=== PATIENT | female | born 1945 | race Caucasian/White ===

== ENCOUNTER 2017-05-24 17:05 | Inpatient (IN) | payer MEDICARE, MEDICAID ==
[2017-05-24] MEDS ORDERED: NS 0.9% 1000 ML* 1,000 ML IV SCH ×2 (19:00→23:30)
[2017-05-24 20:42] LABS: Hematocrit 40 % (35-47); Hemoglobin 13.5 g/dl (12.0-16.0); Mean Corpuscular HGB Conc 34 g/dl (31-36); Mean Corpuscular Hemoglobin 28 pg (27-31); Mean Corpuscular Volume 83 fL (80-97); Mean Platelet Volume 8 um3 (7.4-10.4); Red Blood Count 4.86 10^6/ul (4.0-5.4); Red Cell Distribution Width 15 % (10.5-15); White Blood Count 7.3 10^3/ul (3.5-10.8)
[2017-05-24 20:59] LABS: ALT 12 U/L (7-52); AST 33 U/L (13-39); Albumin 3.7 g/dL (3.2-5.2); Alkaline Phosphatase 93 U/L (34-104); Anion Gap 10 mmol/L (2-11); BUN/Creatinine Ratio 33.3 (8-20); Blood Urea Nitrogen 23 mg/dL (6-24); C Reactive Protein 138.49 mg/L (< 5.00); CO2 Carbon Dioxide 29 mmol/L (22-32); Calcium 9.9 mg/dL (8.6-10.3); Chloride 97 mmol/L (101-111); Creatine Kinase 708 U/L (10-223); EGFR African American 107.9 (>60); EGFR Non-African American 83.9 (>60); Globulin 3.7 g/dL (2-4); Glucose 100 mg/dL (70-100); Lipase 26 U/L (11.0-82.0); Magnesium 1.3 mg/dL (1.9-2.7); Potassium 2.8 mmol/L (3.5-5.0); Sodium 136 mmol/L (133-145); Total Protein 7.4 g/dL (6.4-8.9)
[2017-05-24 21:28] LABS: Alcohol < 10 mg/dL (<10)
[2017-05-24 21:29] LABS: TSH (Thyroid Stimulating Horm) 0.99 mcIU/mL (0.34-5.60)
--- NOTE | 2017-05-24 21:39 | RAD ---
HISTORY: Altered mental status COMPARISONS: None TECHNIQUE: Multiple contiguous axial CT scans were obtained of the head without intravenous contrast. FINDINGS: HEMORRHAGE/INFARCT: There is no hemorrhage or acute infarct. MASSES/SHIFT: There is no mass or shift. EXTRA-AXIAL SPACES: There are no extra-axial fluid collections. SULCI AND VENTRICLES: There is diffuse and proportional enlargement of the sulci and ventricles. CEREBRUM: There is hypoattenuation of the periventricular and subcortical white matter. BRAINSTEM: There are no focal parenchymal abnormalities. CEREBELLUM: There are no focal parenchymal abnormalities. VESSELS: The vessels are grossly normal. PARANASAL SINUSES: There is postsurgical change to the paranasal sinuses. ORBITS: The orbits are unremarkable. BONES AND SOFT TISSUE: No bone or soft tissue abnormalities are noted. OTHER: None IMPRESSION: NO ACUTE INTRACRANIAL PATHOLOGY. DIFFUSE INVOLUTIONAL CHANGE WITH CHRONIC SMALL VESSEL ISCHEMIC CHANGES.
--- NOTE | 2017-05-24 21:50 | RAD ---
HISTORY: Altered mental status COMPARISONS: None VIEWS: 1: frontal portable view of the chest at 9:32 PM FINDINGS: LINES AND TUBES: None. CARDIOMEDIASTINAL SILHOUETTE: The cardiomediastinal silhouette is normal for portable technique. PLEURA: The costophrenic angles are sharp. No pleural abnormalities are noted. LUNG PARENCHYMA: There is hyperinflation. There are mild coarse reticular markings in the lung bases bilaterally. ABDOMEN: The upper abdomen is clear. There is no subphrenic gas. BONES AND SOFT TISSUES: There is diffuse osteopenia. Degenerative changes are noted IMPRESSION: HYPERINFLATION WITH MILD FIBROTIC CHANGES
[2017-05-24] MEDS ORDERED: Magnesium Sulfate 2 GM IV* 2 GM/50 ML BAG IV ONE (22:00)
[2017-05-24] MEDS: NS 0.9% 1000 ML* 1,000 ML IV SCH (22:45)
[2017-05-24] MEDS: Potassium Chlor TAB* 20 MEQ TAB.ER PO SCH ×2 (22:45→23:33)
--- NOTE | 2017-05-24 23:00 | HP ---
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 When asked what brought her to the ED she states, "I fell last week, I think." Per ED/EMS reports she fell during the night of 05/23 when she tripped over her walker while going to the restroom. She was unable to get up and lay on the floor until ~1600 05/24 when her aide arrived, found her, and called EMS. She denies head injury, LOC, chest pain, SOB, N/V, F/C, palpitations , pain, or other issues. 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) asthma osteoporosis Allergies Sulfa Antibiotics Allergy (Verified 05/24/17 18:16) Hives/Diff.Breathing/Itching PSurgHx denies SocHx: denies tobacco, alcohol, & recreational drugs; lives alone; full code status FamHx: unobtainable ROS: as above, otherwise reviewed and all were negative vitals: Vital Signs Temp 37.1 C 05/24/17 17:45 Pulse 88 05/24/17 19:30 Resp 17 05/24/17 19:30 BP 94/51 05/24/17 19:30 Pulse Ox 94 05/24/17 19:30 Intake & Output 05/23/17 05/24/17 05/24/17 23:59 11:59 23:59 Weight 69.853 kg Constitutional: NAD, normally developed, well-nourished elderly white female HEENM: atraumatic; sclera/conjunctiva: non-icteric/clear; hearing: clinically mildly decreased; oropharynx: clear, mucosa tacky Neck: soft tissue: non-tender; thyroid: normal Pulmonary: clear to auscultation bilaterally, good aeration, no accessory muscle use CV: RR/RR, normal S1S2, no carotid bruit, no jugular venous distention, 2+ B DP/ PT, no edema Abdominal: soft, non-distended, non-tender, no rebound/guarding/rigidity, normoactive bowel sounds, no hepatosplenomegaly or masses, no costovertebral angle tenderness Musculoskeletal: general: grossly intact, no palpable tenderness; gait: uses walker at baseline Integumental: B elbow abrasions Psychiatric orientation: AA&O to PP, not TS affect: calm mood: pleasant, cooperative eye contact: fair content: simplistic memory: impaired responses: mildly slowed, often tangential insight: poor Testing: reviewed on paper due to [facility] unscheduled downtime ECG, personally reviewed: NSR rate 92, artifactual baseline, no obvious ischemia CXR: IMPRESSION: Hyperinflation with mild fibrotic changes CT brain WO: IMPRESSION: No acute intracranial pathology. Diffuse involutional change with chronic small vessel ischemic changes. 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
[2017-05-24] MEDS ORDERED: Melatonin (NF) 3 MG TAB PO PRN (23:15)
[2017-05-24] MEDS ORDERED: Albuterol 2.5 MG/3 ML NEB.SOL* (0.083%) INH PRN (23:15)
[2017-05-24] MEDS ORDERED: Ondansetron INJ* 2 MG/ML VIAL IV PRN (23:15)
[2017-05-25] MEDS: NS 0.9% 1000 ML* 1,000 ML IV SCH ×2 (00:17→00:54)
[2017-05-25] MEDS: Potassium Chlor TAB* 20 MEQ TAB.ER PO SCH (00:18)
--- NOTE | 2017-05-25 03:54 | ED ---
Kvng Martinez Rebecca, scribed for Elias Hodgeuel on 05/24/17 at 2331 . Adult Trauma - HPI Summary HPI Summary: Pt is a 72 y/o F BIBA who presents to ED s/p mechanical fall. Last night, the pt fell at home between her bedroom and bathroom. She was on the floor all night , unable to get up on her own. At 1600 today, her home health aide arrived, helped her up and called EMS. Prior to health aides arrival, pt has last been seen at 1600 yesterday. Pt currently c/o generalized weakness. Denies any head trauma and any pain. Pt lives alone. Most of Hx obtained from nurse/medical records due to mild MR. - History of Current Complaint Chief Complaint: EDGeneral Stated Complaint: FALL Time Seen by Provider: 05/24/17 20:18 Hx Obtained From: Patient Mechanism of Injury: Fall Onset/Duration: Resolved Onset of Pain: Prior to Arrival Current Severity: None Pain Intensity: 0 Pain Scale Used: 0-10 Numeric Aggravating Factor(s): Nothing Alleviating Factor(s): Nothing Associated Signs & Symptoms: Positive: Other: - Generalized weakness - Allergy/Home Medications Allergies/Adverse Reactions: Allergies Allergy/AdvReac Type Severity Reaction Status Date / Time Sulfa Antibiotics Allergy Hives/Diff. Verified 05/24/17 18:16 Breathing/I tching PMH/Surg Hx/FS Hx/Imm Hx Cardiovascular History: Reports: Hx Hypercholesterolemia, Hx Hypertension Respiratory History: Reports: Hx Asthma GI History: Reports: Hx Gastroesophageal Reflux Disease Musculoskeletal History: Reports: Hx Osteoporosis Neurological History: Reports: Other Neuro Impairments/Disorders - Mild MR - Cancer History Hx Chemotherapy: No Hx Radiation Therapy: No Infectious Disease History: No Infectious Disease History: Denies: Traveled Outside the [place] in Last 30 Days - Family History Known Family History: Positive: Unknown - Unobtainable secondary to MR - Social History Alcohol Use: None Substance Use Type: Reports: None Smoking Status (MU): Never Smoked Tobacco Review of Systems Positive: Other - Generalized weakness Positive: Other - NEGATIVE: pain Neurological: Other - NEGATIVE: Head trauma All Other Systems Reviewed And Are Negative: Yes Physical Exam - Summary Physical Exam Summary: Appearance: Well appearing, no pain distress Skin: warm, dry, reflects adequate perfusion, abrasion over the R elbow Head/face: normal Eyes: EOMI, ANIBAL ENT: normal Neck: supple, nontender Respiratory: CTA, breath sounds present Cardiovascular: RRR, pulses symmetrical Abdomen: nontender, soft Bowel: present Musculoskeletal: normal, strength/ROM intact Neuro: alert and confused GCS: 15 Triage Information Reviewed: Yes Vital Signs On Initial Exam: Initial Vitals Temp Pulse Resp BP Pulse Ox 98.7 F 90 16 99/55 95 05/24/17 17:45 05/24/17 17:45 05/24/17 17:45 05/24/17 17:45 05/24/17 17:45 Vital Signs Reviewed: Yes Diagnostics - Vital Signs Vital Signs Temp Pulse Resp BP Pulse Ox 05/24/17 19:30 88 17 94/51 94 05/24/17 19:10 95 05/24/17 19:06 90 19 91/49 94 05/24/17 19:00 90 18 86/53 94 05/24/17 18:30 91 19 103/57 94 05/24/17 18:00 94 19 102/53 94 05/24/17 17:48 97 20 93 05/24/17 17:46 99/55 05/24/17 17:45 98.7 F 90 16 99/55 95 - Laboratory Lab Statement: Any lab studies that have been ordered have been reviewed, and results considered in the medical decision making process. - Radiology CXR Xray Interpretation: Positive (See Comments) - HYPERINFLATION WITH MILD FIBROTIC CHANGES. ED physician reviewed radiology report and agrees. Radiology Interpretation Completed By: Radiologist - CT Brain CT CT Interpretation: No Acute Changes - NO ACUTE INTRACRANIAL PATHOLOGY. DIFFUSE INVOLUTIONAL CHANGE WITH CHRONIC SMALL VESSEL ISCHEMIC CHANGES. ED physician reviewed radiology report and agrees. CT Interpretation Completed By: Radiologist Adult Trauma Course/Dx - Course Assessment/Plan: Pt is a 72 y/o F BIBA who presents to ED s/p mechanical fall. Last night, the pt fell at home between her bedroom and bathroom. She was on the floor all night, unable to get up on her own. At 1600 today, her home health aide arrived, helped her up and called EMS. Prior to health aides arrival, pt has last been seen at 1600 yesterday. Pt currently c/o generalized weakness. Denies any head trauma and any pain. Pt lives alone. Most of Hx obtained from nurse/medical records due to mild MR. CT Abd/Pel reveals no acute findings. CXR reveals hyperinflation with mild fibrotic changes. In the ED course, pt received magnesium sulfate. Discussed care of pt with Dr. Triana who accepts pt for admission. Pt will be admitted. She understands and agrees. Allergies noted. - Diagnoses Provider Diagnoses: Altered mental status, Dehydration, Rhabdomyolysis, Hypokalemia, Abrasion of right elbow - Physician Notifications Discussed Care Of Patient With: Shane Triana Time Discussed With Above Provider: 22:05 Instructed by Provider To: Other - Accepts pt for admission. Discharge - Discharge Plan Condition: Stable Disposition: ADMITTED TO [facility] documentation as recorded by the Kvng flores Rebecca accurately reflects the service I personally performed and the decisions made by , Ronal Hodge.
[2017-05-25] MEDS: Omeprazole CAP* 20 MG PO SCH (05:38)
[2017-05-25 06:00] LABS: Hematocrit 36 % (35-47); Hemoglobin 11.9 g/dl (12.0-16.0); Mean Corpuscular HGB Conc 33 g/dl (31-36); Mean Corpuscular Hemoglobin 28 pg (27-31); Mean Corpuscular Volume 84 fL (80-97); Mean Platelet Volume 10 um3 (7.4-10.4); Red Blood Count 4.28 10^6/ul (4.0-5.4); Red Cell Distribution Width 15 % (10.5-15); White Blood Count 5.7 10^3/ul (3.5-10.8)
[2017-05-25 06:18] LABS: BUN/Creatinine Ratio 33.3 (8-20); Calcium 8.9 mg/dL (8.6-10.3); EGFR African American 119.8 (>60); EGFR Non-African American 93.2 (>60); Potassium 3.6 mmol/L (3.5-5.0)
[2017-05-25] MEDS: Docusate CAP* 100 MG PO SCH ×2 (07:38→19:59)
[2017-05-25 10:17] LABS: Hematocrit 37 % (35-47); Hemoglobin 12.2 g/dl (12.0-16.0); Mean Corpuscular HGB Conc 33 g/dl (31-36); Mean Corpuscular Hemoglobin 28 pg (27-31); Mean Corpuscular Volume 84 fL (80-97); Mean Platelet Volume 9 um3 (7.4-10.4); Red Blood Count 4.42 10^6/ul (4.0-5.4); Red Cell Distribution Width 15 % (10.5-15); White Blood Count 5.2 10^3/ul (3.5-10.8)
[2017-05-25 10:32] LABS: Urine Bacteria 2+ (Absent); Urine Bilirubin Negative (Negative); Urine Glucose Negative (Negative); Urine Nitrite Positive (Negative)
[2017-05-25 10:35] LABS: BUN/Creatinine Ratio 31.3 (8-20); C Reactive Protein 125.84 mg/L (< 5.00); Calcium 9.1 mg/dL (8.6-10.3); EGFR African American 111.6 (>60); EGFR Non-African American 86.8 (>60); Potassium 3.5 mmol/L (3.5-5.0)
[2017-05-25 10:54] LABS: TSH (Thyroid Stimulating Horm) 0.93 mcIU/mL (0.34-5.60)
[2017-05-25 10:54] LABS: Benzodiazepine Urine Screen None Detected (None Detect)
--- NOTE | 2017-05-25 16:07 | PN ---
Subjective Date of Service: 05/25/17 Interval History: Pt c/o pain in her left breast after the fall. Remembers slipping and falling down, no LOC. usually walks with a walker. Her sister Karyna is the surrogate and pays pt's bills. Objective Active Medications: Acetaminophen (Tylenol Tab*) 650 mg PO Q6H PRN PRN Reason: FEVER/PAIN Albuterol (Ventolin 2.5 Mg/3 Ml Neb.Esperanza*) 2.5 mg INH Q2H PRN PRN Reason: SOB/WHEEZING Docusate Sodium (Colace Cap*) 200 mg PO BID [facility] Last Admin: 05/25/17 07:38 Dose: 200 mg Sodium Chloride (Ns 0.9% 1000 Ml*) 1,000 mls @ 75 mls/hr IV PER RATE [facility] Last Admin: 05/25/17 00:54 Dose: 75 mls/hr Melatonin (Melatonin (Nf)) 3 mg PO BEDTIME PRN; Protocol PRN Reason: Sleep Omeprazole (Prilosec Cap*) 20 mg PO DAILY@0600 [facility] Last Admin: 05/25/17 05:38 Dose: 20 mg Ondansetron HCl (Zofran Inj*) 4 mg IV Q6H PRN PRN Reason: NAUSEA Appearance: 72 yo f in nAD, aAOx2, does not remember the date-suspect pt's baseline Eyes: No Scleral Icterus, PERRLA Ears/Nose/Mouth/Throat: NL Teeth, Lips, Gums, Clear Oropharnyx, Mucous Membranes Moist Neck: NL Appearance and Movements; NL JVP, Trachea Midline Respiratory: Symmetrical Chest Expansion and Respiratory Effort, - - coarse rhonhi in left lung Cardiovascular: NL Sounds; No Murmurs; No JVD, RRR Abdominal: NL Sounds; No Tenderness; No Distention Lymphatic: No Cervical Adenopathy Extremities: No Edema, No Clubbing, Cyanosis Skin: No Nodules or Sclerosis, - - mild vesicular eczema of b/l palms noted Neurological: - - genrerlaized weakness, no faocal deficit Assess/Plan/Problems-Billing Assessment: 72 yo f with h/o mild intellectual disability, HTN, dyslipidemia, vesicular eczema on b/l palms presents s/p fall. Apparently spent approx 20 hrs on the floor unable to get up. - Patient Problems (1) Rhabdomyolysis Comment: very mild CPK 708 at admission will, stop IVF PT/OT pending Unable to go home due to generalized weakness suspect will need STR. Will place on inpatient status (2) UTI (urinary tract infection) Comment: abd UA, suspect UTI, will start Ceftriaxone (3) Vesicular palmoplantar eczema of hand Comment: chronic, cont steroid cream (4) Intellectual disability Comment: cont olanzapine and abilify Pt denies h/o depression or other psychiatric illnesses No psych dx noted in Dr. Mixon's note from 03/03 (5) HTN (hypertension) Comment: BP WNL without HCTZ, cont holding off meds (6) Hypokalemia Comment: cont daily replacement, today much improved at 3.6 (7) Hypomagnesemia Comment: treated in ED, will check in aM cont telem for now (8) DVT prophylaxis Comment: heparin sc Status and Disposition: OBV changed to inpatient
--- NOTE | 2017-05-25 17:15 | RAD ---
HISTORY: Rule out pneumonia, fall, shortness of breath COMPARISONS: May 24, 2017 VIEWS: 1: frontal portable view of the chest at 4:26 PM. The patient is obliqued to the left. FINDINGS: LINES AND TUBES: None. CARDIOMEDIASTINAL SILHOUETTE: The cardiomediastinal silhouette is normal for portable technique. PLEURA: There is blunting of left costophrenic angle. LUNG PARENCHYMA: There is hyperinflation. There are mild coarse reticular markings, stable. ABDOMEN: The upper abdomen is clear. There is no subphrenic gas. BONES AND SOFT TISSUES: No bone or soft tissue abnormalities are noted. IMPRESSION: SMALL LEFT PLEURAL EFFUSION.
[2017-05-25] MEDS: cefTRIAXone VIAL(*) 1,000 MG in NS 0.9% 50 ML* 50 ML IVPB SCH (18:12)
[2017-05-25] MEDS ORDERED: OLANzapine TAB* 5 MG PO ONE (18:26)
[2017-05-25] MEDS ORDERED: ARIPiprazole TAB* 5 MG PO ONE (18:26)
[2017-05-25] MEDS ORDERED: ARIPiprazole TAB* 20 MG PO ONE (18:30)
[2017-05-25] MEDS: Acetaminophen TAB* 325 MG PO PRN (19:50)
[2017-05-25] MEDS: Famotidine TAB* 20 MG PO SCH (19:59)
[2017-05-25] MEDS: TRIAMCINOLONE 0.025% TOPICAL SCH (20:00)
[2017-05-25] MEDS: Heparin VIAL(*) 5000 UNITS/ML VIAL (FIVE THOUSAND) SUBCUT SCH (21:47)
[2017-05-26] MEDS: Acetaminophen TAB* 325 MG PO PRN ×2 (02:22→16:42)
[2017-05-26] MEDS: NS 0.9% 1000 ML* 1,000 ML IV SCH ×2 (02:23→15:21)
[2017-05-26] MEDS: Omeprazole CAP* 20 MG PO SCH (05:37)
[2017-05-26] MEDS: Heparin VIAL(*) 5000 UNITS/ML VIAL (FIVE THOUSAND) SUBCUT SCH ×3 (05:37→21:35)
[2017-05-26 05:57] LABS: Hematocrit 35 % (35-47); Hemoglobin 11.5 g/dl (12.0-16.0); Mean Corpuscular HGB Conc 33 g/dl (31-36); Mean Corpuscular Hemoglobin 28 pg (27-31); Mean Corpuscular Volume 84 fL (80-97); Mean Platelet Volume 8 um3 (7.4-10.4); Red Blood Count 4.16 10^6/ul (4.0-5.4); Red Cell Distribution Width 15 % (10.5-15); White Blood Count 4.1 10^3/ul (3.5-10.8)
[2017-05-26 06:16] LABS: EGFR African American 104.4 (>60); EGFR Non-African American 81.2 (>60); Magnesium 1.7 mg/dL (1.9-2.7); Potassium 3.5 mmol/L (3.5-5.0)
[2017-05-26] MEDS: Polyethylene Glycol 3350* 17 GM PACKET PO SCH (08:08)
[2017-05-26] MEDS: Potassium Chlor TAB* 10 MEQ TAB.ER PO SCH (08:09)
[2017-05-26] MEDS: Docusate CAP* 100 MG PO SCH ×2 (08:09→21:35)
[2017-05-26] MEDS: OLANzapine TAB* 5 MG PO SCH (08:10)
[2017-05-26] MEDS: ARIPiprazole TAB* 20 MG PO SCH (08:11)
[2017-05-26] MEDS: TRIAMCINOLONE 0.025% TOPICAL SCH ×2 (08:11→21:35)
[2017-05-26] MEDS: Albuterol HFA INHALER* 8 gm MDI INH PRN (08:48)
[2017-05-26] MEDS: FLUTICASONE 220 MCG INH SCH (08:49)
[2017-05-26] MEDS: MDI INH SCH (08:49)
[2017-05-26] MEDS ORDERED: FLOVENT 220 MCG INH SCH (09:00)
[2017-05-26 09:39] LABS: Urine Bacteria 1+ (Absent); Urine Bilirubin Negative (Negative); Urine Glucose Negative (Negative); Urine Nitrite Negative (Negative)
[2017-05-26] MEDS: cefTRIAXone VIAL(*) 1,000 MG in NS 0.9% 50 ML* 50 ML IVPB SCH (16:36)
--- NOTE | 2017-05-26 16:37 | PN ---
Subjective Date of Service: 05/26/17 Interval History: Pt is still " achy all over".. Wants to go home, but her sister requested STR for pt. Demetrice reluctantly agrees and wont do anything against her sister's wishes Objective Active Medications: Acetaminophen (Tylenol Tab*) 650 mg PO Q6H PRN PRN Reason: FEVER/PAIN Last Admin: 05/26/17 02:22 Dose: 650 mg Albuterol (Ventolin 2.5 Mg/3 Ml Neb.Esperanza*) 2.5 mg INH Q2H PRN PRN Reason: SOB/WHEEZING Albuterol (Ventolin Hfa Inhaler*) 2 puff INH Q4H PRN PRN Reason: SOB/WHEEZING Last Admin: 05/26/17 08:48 Dose: 2 puff Aripiprazole (Abilify Tab*) 20 mg PO DAILY [facility] Last Admin: 05/26/17 08:11 Dose: 20 mg Docusate Sodium (Colace Cap*) 200 mg PO BID [facility] Last Admin: 05/26/17 08:09 Dose: 200 mg Famotidine (Pepcid Tab*) 40 mg PO BEDTIME [facility] Last Admin: 05/25/17 19:59 Dose: 40 mg Fluticasone Propionate (Flovent Hfa 220 Mcg(Nf)) 2 puff INH DAILY [facility] Last Admin: 05/26/17 08:49 Dose: 2 puff Heparin Sodium (Porcine) (Heparin Vial(*)) 5,000 units SUBCUT Q8HR [facility] Last Admin: 05/26/17 14:05 Dose: 5,000 units Sodium Chloride (Ns 0.9% 1000 Ml*) 1,000 mls @ 75 mls/hr IV PER RATE [facility] Last Admin: 05/26/17 15:21 Dose: 75 mls/hr Ceftriaxone Sodium 1,000 mg/ (Sodium Chloride) 50 mls @ 200 mls/hr IVPB Q24H [facility] Last Admin: 05/25/17 18:12 Dose: 200 mls/hr Magnesium Oxide (Magox 400 Tab*) 800 mg PO DAILY [facility] Melatonin (Melatonin (Nf)) 3 mg PO BEDTIME PRN; Protocol PRN Reason: Sleep Olanzapine (Zyprexa Tab*) 5 mg PO DAILY [facility] Last Admin: 05/26/17 08:10 Dose: 5 mg Omeprazole (Prilosec Cap*) 20 mg PO DAILY@0600 [facility] Last Admin: 05/26/17 05:37 Dose: 20 mg Ondansetron HCl (Zofran Inj*) 4 mg IV Q6H PRN PRN Reason: NAUSEA Polyethylene Glycol/Electrolytes (Miralax*) 17 gm PO DAILY [facility] Last Admin: 05/26/17 08:08 Dose: 17 gm Potassium Chloride (Klor Con Er Tab*) 10 meq PO DAILY [facility] Last Admin: 05/26/17 08:09 Dose: 10 meq Triamcinolone Acetonide (Kenalog Cream 0.025%*) 1 applic TOPICAL BID [facility] Last Admin: 05/26/17 08:11 Dose: 1 apply Vital Signs 05/25/17 05/25/17 05/25/17 19:20 19:55 23:48 Temperature 98.0 F 98.3 F Pulse Rate 83 58 Respiratory 24 16 16 Rate Blood Pressure 106/64 111/49 (mmHg) O2 Sat by Pulse 95 96 Oximetry 05/26/17 05/26/17 05/26/17 04:22 07:17 07:30 Temperature 98.1 F 97.9 F Pulse Rate 72 63 Respiratory 16 20 20 Rate Blood Pressure 91/57 100/52 (mmHg) O2 Sat by Pulse 97 95 Oximetry 05/26/17 05/26/17 05/26/17 08:18 11:43 15:40 Temperature 97.5 F 98.2 F Pulse Rate 65 72 90 Respiratory 20 20 20 Rate Blood Pressure 95/34 100/55 (mmHg) O2 Sat by Pulse 95 98 96 Oximetry Oxygen Devices in Use Now: None Appearance: 72 yo f in nAD, aAOx2, poor historian, no problems with following commands Eyes: No Scleral Icterus, PERRLA Ears/Nose/Mouth/Throat: NL Teeth, Lips, Gums, Mucous Membranes Moist Neck: NL Appearance and Movements; NL JVP, Trachea Midline Respiratory: Symmetrical Chest Expansion and Respiratory Effort, - - crackles at b/l bases Cardiovascular: NL Sounds; No Murmurs; No JVD, RRR Abdominal: NL Sounds; No Tenderness; No Distention Lymphatic: No Cervical Adenopathy Extremities: No Clubbing, Cyanosis, - - trace pedal edema b/l Skin: No Nodules or Sclerosis, - - mild vesicular eczema on b/l palms Neurological: NL Muscle Strength and Tone Assess/Plan/Problems-Billing Assessment: 72 yo f with h/o mild intellectual disability, HTN, dyslipidemia, vesicular eczema on b/l palms presents s/p fall. Apparently spent approx 20 hrs on the floor unable to get up. - Patient Problems (1) Rhabdomyolysis Comment: very mild CPK 708 at admission, today down to 600 PT/OT ongoing, plan to go to STR (2) UTI (urinary tract infection) Comment: abn UA, cx with E. 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 Mixon's note from 03/03, but as per sister Karyna pt had h/o schizophrenia (5) HTN (hypertension) Comment: BP WNL without HCTZ, cont holding off meds (6) Hypokalemia Comment: cont daily replacement, today much improved at 3.6 (7) Hypomagnesemia Comment: cont daily MgOx today at 1.7 (8) DVT prophylaxis Comment: heparin sc Status and Disposition: inpatient
[2017-05-26] MEDS: Magnesium Oxide TAB* 400 MG PO SCH (16:42)
[2017-05-26] MEDS: Famotidine TAB* 20 MG PO SCH (21:35)
[2017-05-27] MEDS: Heparin VIAL(*) 5000 UNITS/ML VIAL (FIVE THOUSAND) SUBCUT SCH ×3 (05:54→21:14)
[2017-05-27] MEDS: Omeprazole CAP* 20 MG PO SCH (05:54)
[2017-05-27] MEDS: FLUTICASONE 220 MCG INH SCH (07:59)
[2017-05-27] MEDS: ARIPiprazole TAB* 20 MG PO SCH (07:59)
[2017-05-27] MEDS: Polyethylene Glycol 3350* 17 GM PACKET PO SCH (07:59)
[2017-05-27] MEDS: MDI INH SCH (07:59)
[2017-05-27] MEDS: Magnesium Oxide TAB* 400 MG PO SCH (07:59)
[2017-05-27] MEDS: Docusate CAP* 100 MG PO SCH ×2 (07:59→21:11)
[2017-05-27] MEDS: Potassium Chlor TAB* 10 MEQ TAB.ER PO SCH (07:59)
[2017-05-27] MEDS: OLANzapine TAB* 5 MG PO SCH (07:59)
[2017-05-27] MEDS: TRIAMCINOLONE 0.025% TOPICAL SCH ×2 (07:59→21:20)
--- NOTE | 2017-05-27 09:56 | PN ---
Subjective Date of Service: 05/27/17 Interval History: Pt feels well. conversation sometimes tangential: stated that she doesn't like stairs, although we we're talking about how she felt last night. Refuses to go to [facility], but is will ing to talk with Karyna about it further. Objective Active Medications: Acetaminophen (Tylenol Tab*) 650 mg PO Q6H PRN PRN Reason: FEVER/PAIN Last Admin: 05/26/17 16:42 Dose: 650 mg Albuterol (Ventolin 2.5 Mg/3 Ml Neb.Esperanza*) 2.5 mg INH Q2H PRN PRN Reason: SOB/WHEEZING Albuterol (Ventolin Hfa Inhaler*) 2 puff INH Q4H PRN PRN Reason: SOB/WHEEZING Last Admin: 05/26/17 08:48 Dose: 2 puff Aripiprazole (Abilify Tab*) 20 mg PO DAILY [facility] Last Admin: 05/27/17 07:59 Dose: 20 mg Docusate Sodium (Colace Cap*) 200 mg PO BID [facility] Last Admin: 05/27/17 07:59 Dose: 200 mg Famotidine (Pepcid Tab*) 40 mg PO BEDTIME [facility] Last Admin: 05/26/17 21:35 Dose: 40 mg Fluticasone Propionate (Flovent Hfa 220 Mcg(Nf)) 2 puff INH DAILY [facility] Last Admin: 05/26/17 08:49 Dose: 2 puff Heparin Sodium (Porcine) (Heparin Vial(*)) 5,000 units SUBCUT Q8HR [facility] Last Admin: 05/27/17 05:54 Dose: 5,000 units Ceftriaxone Sodium 1,000 mg/ (Sodium Chloride) 50 mls @ 200 mls/hr IVPB Q24H [facility] Last Admin: 05/26/17 16:36 Dose: 200 mls/hr Magnesium Oxide (Magox 400 Tab*) 800 mg PO DAILY [facility] Last Admin: 05/27/17 07:59 Dose: 800 mg Melatonin (Melatonin (Nf)) 3 mg PO BEDTIME PRN; Protocol PRN Reason: Sleep Olanzapine (Zyprexa Tab*) 5 mg PO DAILY [facility] Last Admin: 05/27/17 07:59 Dose: 5 mg Omeprazole (Prilosec Cap*) 20 mg PO DAILY@0600 [facility] Last Admin: 05/27/17 05:54 Dose: 20 mg Ondansetron HCl (Zofran Inj*) 4 mg IV Q6H PRN PRN Reason: NAUSEA Polyethylene Glycol/Electrolytes (Miralax*) 17 gm PO DAILY [facility] Last Admin: 05/27/17 07:59 Dose: 17 gm Potassium Chloride (Klor Con Er Tab*) 10 meq PO DAILY [facility] Last Admin: 05/27/17 07:59 Dose: 10 meq Triamcinolone Acetonide (Kenalog Cream 0.025%*) 1 applic TOPICAL BID [facility] Last Admin: 05/27/17 07:59 Dose: 1 apply Vital Signs 05/26/17 05/26/17 05/26/17 11:43 15:40 16:42 Temperature 97.5 F 98.2 F 100.4 F Pulse Rate 72 90 Respiratory 20 20 Rate Blood Pressure 95/34 100/55 (mmHg) O2 Sat by Pulse 98 96 Oximetry 05/26/17 05/26/17 05/26/17 19:34 20:00 23:37 Temperature 98.7 F 98.4 F Pulse Rate 77 85 Respiratory 20 20 20 Rate Blood Pressure 84/39 94/58 (mmHg) O2 Sat by Pulse 96 96 Oximetry 05/27/17 05/27/17 05/27/17 03:25 07:42 08:04 Temperature 97.9 F 97.8 F Pulse Rate 69 66 Respiratory 20 20 16 Rate Blood Pressure 96/41 102/45 (mmHg) O2 Sat by Pulse 98 96 Oximetry Oxygen Devices in Use Now: None Appearance: 72 yo f in NAD, aAOx2 Eyes: No Scleral Icterus, PERRLA Ears/Nose/Mouth/Throat: NL Teeth, Lips, Gums, Mucous Membranes Moist Neck: NL Appearance and Movements; NL JVP, Trachea Midline Respiratory: Symmetrical Chest Expansion and Respiratory Effort, Clear to Auscultation Cardiovascular: NL Sounds; No Murmurs; No JVD, RRR Abdominal: NL Sounds; No Tenderness; No Distention Lymphatic: No Cervical Adenopathy Extremities: No Edema Skin: No Rash or Ulcers, No Nodules or Sclerosis Neurological: NL Muscle Strength and Tone Assess/Plan/Problems-Billing Assessment: 72 yo f with h/o mild intellectual disability, HTN, dyslipidemia, vesicular eczema on b/l palms presents s/p fall. Apparently spent approx 20 hrs on the floor unable to get up. - Patient Problems (1) Rhabdomyolysis Comment: very mild PT/OT ongoing, plan to go to STR, although pt refuses. Pt depends on her sister Karyna and Karyna requests STR. Suspect pt's sister will be able to convince pt (2) UTI (urinary tract infection) Comment: abn UA, cx with E. 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 Mixon's note from 03/03, but as per sister Karyna pt had h/o schizophrenia (5) HTN (hypertension) Comment: BP WNL without HCTZ, cont holding off meds (6) Hypokalemia Comment: cont daily replacement (7) Hypomagnesemia Comment: cont daily MgOx (8) DVT prophylaxis Comment: heparin sc Status and Disposition: inpatient
[2017-05-27] MEDS: Albuterol HFA INHALER* 8 gm MDI INH PRN (10:17)
[2017-05-27] MEDS: Acetaminophen TAB* 325 MG PO PRN (18:28)
[2017-05-27] MEDS: cefTRIAXone VIAL(*) 1,000 MG in NS 0.9% 50 ML* 50 ML IVPB SCH (18:35)
[2017-05-27] MEDS ORDERED: NS 0.9% 500 ML BAG* 500 ML IV ONE (21:00)
[2017-05-27] MEDS: Famotidine TAB* 20 MG PO SCH (21:12)
[2017-05-28] MEDS: Omeprazole CAP* 20 MG PO SCH (05:35)
[2017-05-28] MEDS: Heparin VIAL(*) 5000 UNITS/ML VIAL (FIVE THOUSAND) SUBCUT SCH ×3 (05:37→21:21)
[2017-05-28 06:07] LABS: BUN/Creatinine Ratio 29.5 (8-20); Calcium 8.9 mg/dL (8.6-10.3); EGFR African American 124.3 (>60); EGFR Non-African American 96.7 (>60); Magnesium 1.7 mg/dL (1.9-2.7); Potassium 3.7 mmol/L (3.5-5.0)
[2017-05-28] MEDS: Polyethylene Glycol 3350* 17 GM PACKET PO SCH (08:30)
[2017-05-28] MEDS: ARIPiprazole TAB* 20 MG PO SCH (08:30)
[2017-05-28] MEDS: Potassium Chlor TAB* 10 MEQ TAB.ER PO SCH (08:30)
[2017-05-28] MEDS: TRIAMCINOLONE 0.025% TOPICAL SCH ×2 (08:30→20:14)
[2017-05-28] MEDS: Magnesium Oxide TAB* 400 MG PO SCH (08:30)
[2017-05-28] MEDS: Docusate CAP* 100 MG PO SCH ×2 (08:31→20:14)
[2017-05-28] MEDS: OLANzapine TAB* 5 MG PO SCH (08:31)
[2017-05-28] MEDS: FLUTICASONE 220 MCG INH SCH (08:40)
[2017-05-28] MEDS: MDI INH SCH (08:40)
[2017-05-28] MEDS: Mometasone 220 MCG MDI INH SCH (10:34)
--- NOTE | 2017-05-28 12:28 | RAD ---
Indication: Left leg pain and edema. Duplex Doppler sonography of the left lower extremity was performed. Left common femoral vein, proximal greater saphenous vein, proximal deep femoral vein and femoral veins appear patent and compressible. Patient would not allow completion of the exam. IMPRESSION: No evidence of deep venous thrombosis from the left common femoral vein to the left femoral vein distally. Patient would not allow for completion of the exam.
--- NOTE | 2017-05-28 15:00 | PN ---
Subjective Date of Service: 05/28/17 Interval History: pt stated that she fell last night, then she said" just joking". Had been resistant to get OOB. c/o left leg swelling, but refused to have a complete doppler evaluation apparently was disoriented to place at night Objective Active Medications: Acetaminophen (Tylenol Tab*) 650 mg PO Q6H PRN PRN Reason: FEVER/PAIN Last Admin: 05/27/17 18:28 Dose: 650 mg Albuterol (Ventolin 2.5 Mg/3 Ml Neb.Esperanza*) 2.5 mg INH Q2H PRN PRN Reason: SOB/WHEEZING Albuterol (Ventolin Hfa Inhaler*) 2 puff INH Q4H PRN PRN Reason: SOB/WHEEZING Last Admin: 05/27/17 10:17 Dose: 2 puff Aripiprazole (Abilify Tab*) 20 mg PO DAILY [facility] Last Admin: 05/28/17 08:30 Dose: 20 mg Docusate Sodium (Colace Cap*) 200 mg PO BID [facility] Last Admin: 05/28/17 08:31 Dose: 200 mg Famotidine (Pepcid Tab*) 40 mg PO BEDTIME [facility] Last Admin: 05/27/17 21:12 Dose: 40 mg Fluticasone Propionate (Flovent Hfa 220 Mcg(Nf)) 2 puff INH DAILY [facility] Last Admin: 05/28/17 08:40 Dose: Not Given Heparin Sodium (Porcine) (Heparin Vial(*)) 5,000 units SUBCUT Q8HR [facility] Last Admin: 05/28/17 13:58 Dose: 5,000 units Ceftriaxone Sodium 1,000 mg/ (Sodium Chloride) 50 mls @ 200 mls/hr IVPB Q24H [facility] Last Admin: 05/27/17 18:35 Dose: 200 mls/hr Magnesium Oxide (Magox 400 Tab*) 800 mg PO DAILY [facility] Last Admin: 05/28/17 08:30 Dose: 800 mg Melatonin (Melatonin (Nf)) 3 mg PO BEDTIME PRN; Protocol PRN Reason: Sleep Mometasone Furoate (Asmanex 220 Mcg Mdi *) 2 puff INH DAILY [facility] Last Admin: 05/28/17 10:34 Dose: 2 puff Olanzapine (Zyprexa Tab*) 5 mg PO DAILY [facility] Last Admin: 05/28/17 08:31 Dose: 5 mg Omeprazole (Prilosec Cap*) 20 mg PO DAILY@0600 [facility] Last Admin: 05/28/17 05:35 Dose: 20 mg Ondansetron HCl (Zofran Inj*) 4 mg IV Q6H PRN PRN Reason: NAUSEA Polyethylene Glycol/Electrolytes (Miralax*) 17 gm PO DAILY [facility] Last Admin: 05/28/17 08:30 Dose: 17 gm Potassium Chloride (Klor Con Er Tab*) 10 meq PO DAILY [facility] Last Admin: 05/28/17 08:30 Dose: 10 meq Triamcinolone Acetonide (Kenalog Cream 0.025%*) 1 applic TOPICAL BID [facility] Last Admin: 05/28/17 08:30 Dose: 1 apply Vital Signs 05/27/17 05/27/17 05/27/17 15:35 19:33 19:46 Temperature 97.7 F 97.9 F Pulse Rate 73 65 Respiratory 20 20 Rate Blood Pressure 102/50 70/48 80/50 (mmHg) O2 Sat by Pulse 96 95 Oximetry 05/27/17 05/27/17 05/28/17 20:00 23:44 00:05 Temperature 98.6 F Pulse Rate 70 65 Respiratory 20 20 Rate Blood Pressure 86/45 93/46 (mmHg) O2 Sat by Pulse 94 Oximetry 05/28/17 05/28/17 05/28/17 00:09 03:33 03:47 Temperature 98.3 F Pulse Rate 65 197 63 Respiratory 18 Rate Blood Pressure 93/46 79/23 93/65 (mmHg) O2 Sat by Pulse 95 Oximetry 05/28/17 05/28/17 05/28/17 07:36 08:00 08:35 Temperature 98.0 F Pulse Rate 71 80 Respiratory 16 18 18 Rate Blood Pressure 115/53 (mmHg) O2 Sat by Pulse 95 95 Oximetry 05/28/17 10:35 Temperature Pulse Rate 80 Respiratory 17 Rate Blood Pressure (mmHg) O2 Sat by Pulse 95 Oximetry Oxygen Devices in Use Now: None Appearance: 72 yo f in nAD, AAOx2 Eyes: No Scleral Icterus, PERRLA Ears/Nose/Mouth/Throat: NL Teeth, Lips, Gums, Mucous Membranes Moist Neck: NL Appearance and Movements; NL JVP, Trachea Midline Respiratory: Symmetrical Chest Expansion and Respiratory Effort, - - faint bibasliar crackles Cardiovascular: NL Sounds; No Murmurs; No JVD, RRR Abdominal: NL Sounds; No Tenderness; No Distention Lymphatic: No Cervical Adenopathy Extremities: No Clubbing, Cyanosis, - - left leg non pitting edema noted at 1+ Skin: No Nodules or Sclerosis, - - eczema on hands unchanged Neurological: NL Muscle Strength and Tone Result Diagrams: 05/26/17 05:38 05/28/17 05:24 Assess/Plan/Problems-Billing Assessment: 72 yo f with h/o mild intellectual disability, HTN, dyslipidemia, vesicular eczema on b/l palms presents s/p fall. Apparently spent approx 20 hrs on the floor unable to get up. - Patient Problems (1) Rhabdomyolysis Comment: very mild PT/OT ongoing, plan to go to STR, although pt refuses. Pt depends on her sister Karyna. Met with sister and pt today. Pt is afraid that once she goes to rehab she will stay there "forever". Karyna reassured pt that it is only temporarily and that if she participates in STR she will be able to return home. (2) UTI (urinary tract infection) Comment: abn UA, cx with E. 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 Mixon's note from 03/03, but as per sister Karyna pt had h/o schizophrenia (5) HTN (hypertension) Comment: BP WNL without HCTZ, cont holding off meds (6) Hypokalemia Comment: cont daily replacement (7) Hypomagnesemia Comment: cont daily MgOx and IV Mg today (8) DVT prophylaxis Comment: heparin sc Status and Disposition: inpatient
[2017-05-28] MEDS: cefTRIAXone VIAL(*) 1,000 MG in NS 0.9% 50 ML* 50 ML IVPB SCH (18:16)
[2017-05-28] MEDS: Famotidine TAB* 20 MG PO SCH (20:14)
[2017-05-29] MEDS: Heparin VIAL(*) 5000 UNITS/ML VIAL (FIVE THOUSAND) SUBCUT SCH (05:50)
[2017-05-29] MEDS: Omeprazole CAP* 20 MG PO SCH ×2 (05:51→09:24)
[2017-05-29] MEDS: Mometasone 220 MCG MDI INH SCH (08:52)
[2017-05-29] MEDS: Polyethylene Glycol 3350* 17 GM PACKET PO SCH (09:24)
[2017-05-29] MEDS: Docusate CAP* 100 MG PO SCH (09:24)
[2017-05-29] MEDS: OLANzapine TAB* 5 MG PO SCH (09:25)
[2017-05-29] MEDS: Magnesium Oxide TAB* 400 MG PO SCH (09:25)
[2017-05-29] MEDS: ARIPiprazole TAB* 20 MG PO SCH (09:27)
[2017-05-29] MEDS: Potassium Chlor TAB* 10 MEQ TAB.ER PO SCH (09:27)
[2017-05-29] MEDS: TRIAMCINOLONE 0.025% TOPICAL SCH (09:27)
[2017-05-29 09:39] VITALS: BP 128/64
--- NOTE | 2017-05-29 09:56 | PN ---
Subjective Date of Service: 05/29/17 Interval History: Py got agitated when she was told that she needs to go to rehab. Mental status at baseline, conversational, but disoriented to time and cannot remember her age Told me that her home called her and "they want her back" which is not true Objective Active Medications: Acetaminophen (Tylenol Tab*) 650 mg PO Q6H PRN PRN Reason: FEVER/PAIN Last Admin: 05/27/17 18:28 Dose: 650 mg Albuterol (Ventolin 2.5 Mg/3 Ml Neb.Esperanza*) 2.5 mg INH Q2H PRN PRN Reason: SOB/WHEEZING Albuterol (Ventolin Hfa Inhaler*) 2 puff INH Q4H PRN PRN Reason: SOB/WHEEZING Last Admin: 05/27/17 10:17 Dose: 2 puff Aripiprazole (Abilify Tab*) 20 mg PO DAILY [facility] Last Admin: 05/29/17 09:27 Dose: 20 mg Docusate Sodium (Colace Cap*) 200 mg PO BID [facility] Last Admin: 05/29/17 09:24 Dose: Not Given Famotidine (Pepcid Tab*) 40 mg PO BEDTIME [facility] Last Admin: 05/28/17 20:14 Dose: 40 mg Fluticasone Propionate (Flovent Hfa 220 Mcg(Nf)) 2 puff INH DAILY [facility] Last Admin: 05/28/17 08:40 Dose: Not Given Heparin Sodium (Porcine) (Heparin Vial(*)) 5,000 units SUBCUT Q8HR [facility] Last Admin: 05/29/17 05:50 Dose: Not Given Ceftriaxone Sodium 1,000 mg/ (Sodium Chloride) 50 mls @ 200 mls/hr IVPB Q24H [facility] Last Admin: 05/28/17 18:16 Dose: 200 mls/hr Magnesium Oxide (Magox 400 Tab*) 800 mg PO DAILY [facility] Last Admin: 05/29/17 09:25 Dose: 800 mg Melatonin (Melatonin (Nf)) 3 mg PO BEDTIME PRN; Protocol PRN Reason: Sleep Mometasone Furoate (Asmanex 220 Mcg Mdi *) 2 puff INH DAILY [facility] Last Admin: 05/29/17 08:52 Dose: 2 puff Olanzapine (Zyprexa Tab*) 5 mg PO DAILY [facility] Last Admin: 05/29/17 09:25 Dose: 5 mg Omeprazole (Prilosec Cap*) 20 mg PO DAILY@0600 [facility] Last Admin: 05/29/17 09:24 Dose: 20 mg Ondansetron HCl (Zofran Inj*) 4 mg IV Q6H PRN PRN Reason: NAUSEA Polyethylene Glycol/Electrolytes (Miralax*) 17 gm PO DAILY [facility] Last Admin: 05/29/17 09:24 Dose: 17 gm Potassium Chloride (Klor Con Er Tab*) 10 meq PO DAILY [facility] Last Admin: 05/29/17 09:27 Dose: 10 meq Triamcinolone Acetonide (Kenalog Cream 0.025%*) 1 applic TOPICAL BID [facility] Last Admin: 05/29/17 09:27 Dose: Not Given Vital Signs 05/28/17 05/28/17 05/28/17 10:35 15:51 19:58 Temperature 97.8 F 98.0 F Pulse Rate 80 92 71 Respiratory 17 22 20 Rate Blood Pressure 103/57 88/49 (mmHg) O2 Sat by Pulse 95 96 95 Oximetry 05/28/17 05/28/17 05/28/17 20:00 20:43 23:52 Temperature 98.6 F Pulse Rate 63 Respiratory 18 20 Rate Blood Pressure 103/58 87/37 (mmHg) O2 Sat by Pulse 98 Oximetry 05/29/17 05/29/17 05/29/17 00:01 03:25 03:48 Temperature 98.2 F Pulse Rate 62 Respiratory 16 Rate Blood Pressure 96/58 87/45 98/60 (mmHg) O2 Sat by Pulse 94 Oximetry 05/29/17 05/29/17 05/29/17 07:30 08:00 08:50 Temperature 98.4 F Pulse Rate 81 80 Respiratory 20 20 Rate Blood Pressure 128/64 (mmHg) O2 Sat by Pulse 97 Oximetry Oxygen Devices in Use Now: None Result Diagrams: 05/26/17 05:38 05/28/17 05:24 Assess/Plan/Problems-Billing Assessment: 72 yo f with h/o mild intellectual disability, HTN, dyslipidemia, vesicular eczema on b/l palms presents s/p fall. Apparently spent approx 20 hrs on the floor unable to get up. - Patient Problems (1) Rhabdomyolysis Comment: very mild PT/OT ongoing, plan to go to STR, although pt refuses, she does not have the capacity to make the decision. Pt's sister Karyna agrees with STR (2) UTI (urinary tract infection) Comment: abn UA, cx with E. coli, cont Ceftriaxone (day 12/20 today) (3) Vesicular palmoplantar eczema of hand Comment: chronic, cont steroid cream (4) Intellectual disability Comment: cont olanzapine and abilify Pt denies h/o depression or other psychiatric illnesses No psych dx noted in Dr. Mixon's note from 03/03, but as per sister Karyna pt had h/o schizophrenia (5) HTN (hypertension) Comment: BP WNL without HCTZ, cont holding off meds (6) Hypokalemia Comment: cont daily replacement (7) Hypomagnesemia Comment: cont daily MgOx (8) DVT prophylaxis Comment: heparin sc Status and Disposition: inpatient. Medically stable for STR
[2017-05-29] MEDS ORDERED: Cephalexin CAP* 500 MG PO ONE (12:08)
--- NOTE | 2017-05-29 13:46 | DS ---
CC: Dr. Mixon; Dr. Elizabeth, Psychiatry; [facility] * DISCHARGE SUMMARY: DATE OF ADMISSION: 05/24/17 DATE OF DISCHARGE: 05/29/17 PRIMARY CARE PROVIDER: Dr. Mixon. DISCHARGE DIAGNOSES: 1. Status post fall with mild rhabdomyolysis. 2. Hypokalemia and hypomagnesemia. 3. Escherichia coli urinary tract infection. SECONDARY DIAGNOSES: 1. History of atopic dermatitis and vesicular eczema of the hands. 2. Gastroesophageal reflux disease. 3. History of hypertension in the past, currently not active. 4. History of nasal polyp. 5. History of mild mental handicap. 6. History of asthma. 7. Osteoporosis. MEDICATIONS AT DISCHARGE: Include: 1. Abilify 20 mg daily. 2. Calcium with vitamin D 1 tablet daily. 3. Flovent 220 mcg 2 puffs daily. 4. Fluticasone nasal spray 1 to 2 sprays each nostril daily. 5. Olanzapine 5 mg daily. 6. Potassium chloride 10 mEq daily. 7. Ranitidine 300 mg at bedtime. 8. Acetaminophen on a p.r.n. basis. 9. Albuterol inhaler 2 puffs every 4 hours p.r.n. 10. Fosamax 70 mg weekly. 11. Mag-Ox 800 mg daily. 12. MiraLAX 17 g daily. 13. Triamcinolone cream 0.025% one application to bilateral palms daily. LABORATORY DATA AND STUDIES PERFORMED DURING THE HOSPITAL STAY: Included: On 05/28/17 - sodium of 141, potassium 3.7, chloride 110, carbon dioxide 26, BUN 18 , creatinine 0.61, magnesium of 1.7. CBC on 05/26/17 - white blood cell count of 4.1, hemoglobin 11.5, hematocrit of 35, and platelets of 142. Microbiology test was positive for over 100,000 colonies of E. coli in the urine , sensitive to most of the antibiotics tested. On the day of admission, please note that the patient's potassium was 2.8, chloride 97, and magnesium of 1.3. Portable chest x-ray on 05/25/17, impression: "Small left pleural effusion." Brain CT obtained on admission, impression: "No acute intracranial pathology. Diffuse involutional change with chronic small vessel ischemic changes." Venous Doppler study of the left leg was incomplete due to the patient refusing further evaluation, but it showed no evidence of DVT from the left common femoral vein to the left femoral vein distally. HOSPITALIZATION COURSE: Demetrice Gonsales is a 72-year-old female with history of being mentally handicapped as well as osteoporosis and questionable psychiatric history, likely schizophrenia as per the patient's sister, who presented to the hospital after she was found down in her apartment for several hours. The patient's CPKs were mildly elevated in the 700 range. She was noted to have E. coli UTI. Over the course of the several days of her hospital stay, she is doing very well, although she refused to participate in physical therapy and refused to get out of bed. I spoke with the patient's sister, Karyna, who stated that the patient has problems and apparently was diagnosed with schizophrenia, although according to the medical records that were accessible to me from Dr. Mixon's office, the patient has history of "mental handicap," but no other diagnosis of another psychiatric condition. Nevertheless, apparently the patient at baseline had very limited functioning and her sister, Karyna, had been taking care of her in independent senior apartment living situation. Physical Therapy and Occupational Therapy deemed the patient a good candidate for short-term rehabilitation and the [facility]. Please note that the patient had been refusing to go to rehab, but her mental status is such that she does not have a capacity to make the decision and her sister, Karyna, made a decision for her. PHYSICAL EXAM AT THE TIME OF DISCHARGE: Please see daily progress notes. Please note that the patient's UTI was treated with cephalosporin for a total of 5 days' treatment, which was completed [facility]. For physical exam at the time of discharge, please see daily progress notes. [id number]/[facility] #: [id number] [facility] CENTERJulius
== END 2017-05-29 13:48 | DRG 565 ==
LOC: ED 17:05 → MEDTELE 23:14 → OBSVTOIN 05-25 15:39
PROVIDERS: ADMIT Hospitalist; ATTEND Internal Medicine
DX: T79.6XXA Traumatic ischemia of muscle, initial encounter (principal); N39.0 Urinary tract infection, site not specified; E83.42 Hypomagnesemia; W18.30XA Fall on same level, unspecified, initial encounter; Y92.039 Unspecified place in apartment as the place of occurrence of the external cause; E87.6 Hypokalemia; B96.20 Unspecified Escherichia coli [E. coli] as the cause of diseases classified elsewhere; L20.9 Atopic dermatitis, unspecified; K21.9 Gastro-esophageal reflux disease without esophagitis; M81.0 Age-related osteoporosis without current pathological fracture; F70 Mild intellectual disabilities; I10 Essential (primary) hypertension; E78.5 Hyperlipidemia, unspecified; J45.909 Unspecified asthma, uncomplicated; Z88.2 Allergy status to sulfonamides
CPT/HCPCS: 36415; 70450; 71010; 80048; 80053; 80307; 80320; 81003; 81015; 82550; 82553; 83605; 83690; 83735; 83880; 84443; 84484; 85025; 85027; 85610; 85730; 86140; 87077; 87086; 87186; 93005; 94640; 94760; A9270-GY; G0480; J0696; J1644; J3475

== ENCOUNTER 2017-07-04 17:04 | Inpatient (IN) | payer MEDICARE, MEDICAID ==
[2017-07-04] MEDS ORDERED: NS 0.9% 1000 ML* 1,000 ML IV ONE (19:11)
[2017-07-04] MEDS ORDERED: Ondansetron INJ* 2 MG/ML VIAL IV ONE (19:11)
--- NOTE | 2017-07-04 19:48 | RAD ---
Indication: Nausea, vomiting, diarrhea. Asthma. Comparison: May 25, 2017 Technique: Sitting AP and lateral chest views. Report: Kyphotic position. No pulmonary infiltrate, focal pulmonary lesion, pleural effusion, or pneumothorax. Accounting for kyphotic position and leftward rotation there is no radiographic abnormality of the heart, central pulmonary vasculature, or mediastinal contours. Negative for free air beneath the diaphragm. IMPRESSION: No evidence for acute intrathoracic disease.
[2017-07-04 20:40] LABS: Hematocrit 40 % (35-47); Mean Corpuscular HGB Conc 32 g/dl (31-36); Mean Corpuscular Hemoglobin 27 pg (27-31); Mean Corpuscular Volume 83 fL (80-97); Mean Platelet Volume 9 um3 (7.4-10.4); Red Blood Count 4.85 10^6/ul (4.0-5.4); Red Cell Distribution Width 16 % (10.5-15); White Blood Count 12.5 10^3/ul (3.5-10.8)
[2017-07-04 20:55] LABS: BUN/Creatinine Ratio 42.6 (8-20); C Reactive Protein 438.34 mg/L (< 5.00); Calcium 9.7 mg/dL (8.6-10.3); EGFR African American 109.7 (>60); EGFR Non-African American 85.3 (>60); Globulin 3.6 g/dL (2-4); Magnesium 1.9 mg/dL (1.9-2.7); Potassium 3.5 mmol/L (3.5-5.0); Total Bilirubin 0.8 mg/dL (0.2-1.0); Total Protein 6.6 g/dL (6.4-8.9)
[2017-07-04 20:56] LABS: Troponin I 0.01 ng/mL (<0.04)
[2017-07-04 21:33] LABS: Urine Bacteria 3+ (Absent); Urine Bilirubin Negative (Negative); Urine Glucose Negative (Negative); Urine Nitrite Positive (Negative)
[2017-07-04] MEDS ORDERED: cefTRIAXone(*) 1 GM in NS 0.9% 50 ML* 50 ML IVPB ONE (21:57)
--- NOTE | 2017-07-04 21:59 | ED ---
Karine Martinez Gabriel, scribed for Aguila Melchor MD on 07/04/17 at 1914 . Complex/Multi-Sys Presentation - HPI Summary HPI Summary: This patient is a 72 year old F BIBA to [facility] from [facility] with a chief complaint of vomiting since 3 days prior. Patient reports ABD pain , vomiting, diarrhea. LEVEL 5 CAVEAT HPI limited due to patient being barely responsive. - History Of Current Complaint Chief Complaint: EDNauseaVomitDiarrh Time Seen by Provider: 07/04/17 18:58 Hx Obtained From: Patient, EMS Onset/Duration: Lasting Days - 3, Still Present Timing: Constant - Allergies/Home Medications Allergies/Adverse Reactions: Allergies Allergy/AdvReac Type Severity Reaction Status Date / Time Aspirin Allergy See Comment Verified 05/26/17 06:49 Sulfa Antibiotics Allergy Hives/Diff. Verified 05/24/17 18:16 Breathing/I tching PMH/Surg Hx/FS Hx/Imm Hx Previously Healthy: No Cardiovascular History: Reports: Hx Hypercholesterolemia, Hx Hypertension Respiratory History: Reports: Hx Asthma GI History: Reports: Hx Gastroesophageal Reflux Disease Musculoskeletal History: Reports: Hx Osteoporosis Sensory History: Reports: Hx Contacts or Glasses Denies: Hx Hearing Aid Opthamlomology History: Reports: Hx Contacts or Glasses Neurological History: Reports: Other Neuro Impairments/Disorders - Mild MR - Cancer History Hx Chemotherapy: No Hx Radiation Therapy: No Infectious Disease History: No Infectious Disease History: Denies: Traveled Outside the [place] in Last 30 Days - Family History Known Family History: Positive: Unknown - Unobtainable secondary to MR - Social History Alcohol Use: None Substance Use Type: Reports: None Smoking Status (MU): Never Smoked Tobacco - Additional Comments History Additional Comments: LEVEL 5 CAVEAT Medical history limited due to patient being barely responsive. Review of Systems Positive: Abdominal Pain, Vomiting, Diarrhea All Other Systems Reviewed And Are Negative: No - Comments Additional Review of Systems Comments: LEVEL 5 CAVEAT ROS limited due to patient being barely responsive. Physical Exam Triage Information Reviewed: Yes Vital Signs On Initial Exam: Initial Vitals Temp Pulse Resp BP Pulse Ox 97.2 F 108 21 122/50 98 07/04/17 17:09 07/04/17 17:09 07/04/17 17:09 07/04/17 17:09 07/04/17 17:09 Vital Signs Reviewed: Yes Completion Of Physical Exam Limited Due To: Level 5 Appearance: Positive: Well-Appearing, No Pain Distress Skin: Positive: Warm Head/Face: Positive: Normal Head/Face Inspection Eyes: Positive: EOMI ENT: Positive: Other - dry membranes Neck: Positive: Nontender Respiratory/Lung Sounds: Positive: Clear to Auscultation, Breath Sounds Present Cardiovascular: Positive: RRR. Negative: Murmur Abdomen Description: Positive: Nontender Musculoskeletal: Positive: Strength/ROM Intact Neurological: Positive: Sensory/Motor Intact, Alert, Oriented to Person Place, Time, CN Intact II-III Psychiatric: Positive: Normal - [place] Coma Scale Best Eye Response: 4 - Spontaneous Best Motor Response: 6 - Obeys Commands Best Verbal Response: 5 - Oriented Coma Scale Total: 15 Diagnostics - Vital Signs Vital Signs Temp Pulse Resp BP Pulse Ox 07/04/17 17:09 97.2 F 108 21 122/50 98 - Laboratory Result Diagrams: 07/04/17 20:32 07/04/17 20:32 Lab Statement: Any lab studies that have been ordered have been reviewed, and results considered in the medical decision making process. - Radiology CXR Radiology Interpretation Completed By: Radiologist - No evidence for acute intrathoracic disease. ED physician has reviewed this radiology report and agrees. Complex Multi-Symp Course/Dx Course Of Treatment: 72 yr old with NVD and uti, and dehydration. Admit to hospitalists. - Diagnoses Provider Diagnoses: UTI (urinary tract infection), Dehydration Discharge - Discharge Plan Condition: Good Disposition: ADMITTED TO [facility] Referrals: Rick Mixon MD [Primary Care Provider] - The documentation as recorded by the Karine flores Gabriel accurately reflects the service I personally performed and the decisions made by Ruiz rice Walter, MD.
[2017-07-04] MEDS ORDERED: NS 0.9% 1000 ML* 1,000 ML IV SCH (22:15)
[2017-07-04 22:26] LABS: Troponin I 0.01 ng/mL (<0.04)
[2017-07-04] MEDS ORDERED: Albuterol HFA INHALER* 8 gm MDI INH PRN (23:10)
--- NOTE | 2017-07-04 23:20 | ED ---
IKarine Gabriel, scribed for Aguila Melchor MD on 07/04/17 at 2248 . Progress - Progress Note Progress Note: The follow two EKG's were entered into the wrong chart. - EKG/XRAY/CT EKG: unchanged from - in comparison to EKG from 05/24/17 Comments: 21:04 Sinus tachycardia at 104 BPM - Additional EKG/XRAY/Consults EKG #2: MD - nml, QRS - nml Comments: 21:10 Normal QT Sinus tachycardia at 100 BPM Course/Dx - Course Course Of Treatment: 72 yr old with NVD and uti, and dehydration. Admit to hospitalists. - Diagnoses Provider Diagnoses: UTI (urinary tract infection), Dehydration The documentation as recorded by the Karine flores Gabriel accurately reflects the service I personally performed and the decisions made by , Aguila Melchor MD.
[2017-07-05] MEDS ORDERED: Iohexol 300* (CONTRAST) 10 ML SDV IV ONE (01:49)
[2017-07-05 06:41] LABS: Hematocrit 34 % (35-47); Mean Corpuscular HGB Conc 33 g/dl (31-36); Mean Corpuscular Hemoglobin 27 pg (27-31); Mean Corpuscular Volume 82 fL (80-97); Mean Platelet Volume 9 um3 (7.4-10.4); Red Blood Count 4.14 10^6/ul (4.0-5.4); Red Cell Distribution Width 16 % (10.5-15); White Blood Count 5.5 10^3/ul (3.5-10.8)
[2017-07-05 07:03] LABS: BUN/Creatinine Ratio 44.6 (8-20); C Reactive Protein 313.7 mg/L (< 5.00); Calcium 8.2 mg/dL (8.6-10.3); EGFR African American 115.6 (>60); EGFR Non-African American 89.9 (>60); Potassium 3.1 mmol/L (3.5-5.0)
[2017-07-05] MEDS ORDERED: Potassium Chlor TAB* 20 MEQ TAB.ER PO ONE (07:16)
[2017-07-05] MEDS: ARIPiprazole TAB* 20 MG PO SCH (08:20)
[2017-07-05] MEDS: Cholecalciferol TAB* 400 UNIT PO SCH (08:20)
[2017-07-05] MEDS: OLANzapine TAB* 5 MG PO SCH (08:21)
[2017-07-05] MEDS: Potassium Chlor TAB* 10 MEQ TAB.ER PO SCH (08:21)
[2017-07-05] MEDS ORDERED: Potassium Chloride LIQUID* 20 MEQ PACKET PO ONE (08:23)
[2017-07-05] MEDS ORDERED: Piperacillin/Tazobac ADVAN(*) 3.375 GM in NS 0.9% 100 ML* 100 ML IVPB ONE (08:24)
[2017-07-05] MEDS ORDERED: Rivaroxaban TAB(*) 15 MG PO SCH (09:00)
[2017-07-05] MEDS ORDERED: Zosyn per Pharmacy* NOTE FOLLOW UP SCH (09:00)
[2017-07-05] MEDS ORDERED: Heparin VIAL(*) 5000 UNITS/ML VIAL (FIVE THOUSAND) SUBCUT SCH (09:00)
[2017-07-05] MEDS: KCL 10 MEQ/50 ML IVPREMIX* 10 MEQ/50 ML BAG IV SCH ×2 (09:01→14:20)
[2017-07-05] MEDS: Mometasone/Formoter 200/5 MDI INH SCH (09:06)
[2017-07-05] MEDS ORDERED: Ondansetron INJ* 2 MG/ML VIAL ONE (10:26)
[2017-07-05] MEDS ORDERED: Propofol* 10 MG/ML 20 ML BTL IV PUSH ONE (10:26)
[2017-07-05] MEDS ORDERED: KETAMINE HCL* 50 MG/ML 10 ML VIAL ONE (10:26)
[2017-07-05] MEDS ORDERED: fentaNYL* 50 MCG/ML 2 ML VIAL (100 MCG VIAL) ONE (10:26)
[2017-07-05] MEDS ORDERED: Midazolam* 1 MG/ML 5 ML VIAL (5 MG) ONE (10:26)
[2017-07-05] MEDS ORDERED: Cisatracurium* 2 MG/ML MDV 5 ML ONE (10:26)
[2017-07-05] MEDS ORDERED: Lidocaine 2% PF * 5 ML VIAL ONE (10:26)
[2017-07-05] MEDS ORDERED: Dexamethasone IV* 4 MG/ML 1 ML (4 MG) ONE ×2 (10:27)
[2017-07-05] MEDS ORDERED: Bupivacaine 0.25% SDV* 30 ML ONE (10:48)
[2017-07-05] MEDS ORDERED: Bupivacaine 0.5% SDV PF* 30 ML VIAL ONE (10:48)
[2017-07-05] MEDS ORDERED: EPHEDrine (Pressors)* 50 MG/ML VIAL ONE (11:11)
[2017-07-05] MEDS ORDERED: Phenylephrine IV* 40 MCG/ML 10 ML SYRINGE ONE (11:18)
[2017-07-05] MEDS ORDERED: Ondansetron INJ* 2 MG/ML VIAL IV PRN (11:51)
[2017-07-05] MEDS ORDERED: fentaNYL* 50 MCG/ML 2 ML VIAL (100 MCG VIAL) IV PRN (11:51)
--- NOTE | 2017-07-05 12:45 | SURGPN ---
Brief Operative Note - Surgery Procedures: PRE/POSTOP DX: ACUTE APPENDICITIS WITH PERFORATION. PROC: LAPAROSCOPIC APPENDECTOMY SURG: MECENAS ASSIST: NONE ANES: GET/TOAL EBL: <10ML IVF: 1.9 L LR U/O: 200ML SPEC: APPENDIX AND FECALITH DRAIN: 7MM RENY IN PELVIS COMPL: NONE COND: STABLE; TO RR; EXTUBATED. FINDINGS: DIFFUSE SMALL BOWEL EXUDATE; PERFORATION OF APPENDIX WITH FECALITH VISUALIZED AND REMOVED.
--- NOTE | 2017-07-05 12:57 | RAD ---
CLINICAL HISTORY: Right lower quadrant pain, diarrhea and fever. COMPARISON: None TECHNIQUE: Contrast enhanced CT examination of the abdomen and pelvis from the lung bases through the initial tuberosities. The patient received 72 mL Omnipaque 300 intravenously prior to imaging. FINDINGS: VISUALIZED LUNG BASES: There are centrilobular emphysematous changes of the visualized lungs. There are pleural-based densities at the left lung base most consistent with atelectasis or scarring. There is no large pleural effusion. ABDOMEN AND PELVIS: There is a [id number] hiatal hernia noted. The liver, spleen, pancreas and adrenal glands are grossly normal in appearance. The dependent portion of the gallbladder there is likely a large gallstone. The kidneys are normal in appearance without focal mass, calcification or signs of hydronephrosis. Evaluation of the gastrointestinal tract is limited without oral contrast. There are dilated loops of small bowel measuring up to 3.6 cm in diameter and exhibiting air-fluid levels (coronal image 59 and axial image 63). There is no focal transition point. At the midportion of the appendix there is an 8 mm appendicolith (coronal image 56 and axial image 63. Proximal to this the appendix is normal-appearing. Distal to this the appendix is ill-defined. Adjacent to the appendix there is infiltration of the mesenteric fat, a fluid collection measuring up to 3.3 cm in maximum axial dimension and free air in the peritoneal fat. Air-fluid levels are noted throughout the colon including the rectosigmoid colon. The pelvic viscera is normal in appearance. The mildly calcified abdominal aorta and iliac arteries are normal in course and diameter. Degenerative changes include multilevel loss of intervertebral disc height involving the lower thoracic and lumbar spine.There are no sinister bone lesions. IMPRESSION: 1. CT findings are most consistent with perforated distal appendicitis likely related to an 8 mm appendicolith. Adjacent to the distal appendix there is a small fluid collection and free air. The pathologically dilated proximal small bowel and air-fluid levels seen throughout most of the gastrointestinal tract are likely reactive to the adjacent appendicitis. 2. Cholelithiasis without signs of biliary obstruction or acute inflammatory change. 3. Additional chronic and degenerative changes noted in the body the report unlikely to be directly related to the patient's appendicitis.
--- NOTE | 2017-07-05 13:26 | PN ---
Subjective Date of Service: 07/05/17 Interval History: CT scan noted this morning showing perforated appendix. Spoke with Dr. Salcedo and Dr. Wagner prior to patient being taken to OR. Patient seen this morning. She was a bit sleepy but awoke to voice and was responsive. Reported abdominal pain, denies chest pain or SOB. Explained need to go to OR for perforated appendix which she seemed to understand, she stated her sister, Karyna, is her surrogate decision maker. Family History: Unchanged from Admission Social History: Unchanged from Admission Past Medical History: Unchanged from Admission Objective Active Medications: Albuterol (Ventolin Hfa Inhaler*) 2 puff INH Q4H PRN Aripiprazole (Abilify Tab*) 20 mg PO DAILY [facility] Cholecalciferol (Vitamin D Tab*) 400 unit PO DAILY [facility] Fentanyl Citrate (Fentanyl*) 25 mcg IV Q5M PRN Piperacillin Sod/Tazobactam (Sod 3.375 gm/ Sodium Chloride) 100 mls @ 200 mls/ hr IVPB Q8H [facility] Lactated Ringer's (Lactated Ringers 1000 Ml Bag*) 1,000 mls @ 150 mls/hr IV PER RATE [facility] Mirtazapine (Remeron Tab*) 7.5 mg PO BEDTIME [facility] Mometasone Furoate/Formoterol Fumar (Dulera 200/5 Mdi*) 2 puff INH DAILY [facility] Olanzapine (Zyprexa Tab*) 5 mg PO DAILY [facility] Ondansetron HCl (Zofran Inj*) 4 mg IV ONCE PRN Pharmacy Consult (Zosyn Per Pharmacy*) 1 note FOLLOW UP .ZOSYN PER PHARMACY [facility] Potassium Chloride (Klor Con Er Tab*) 10 meq PO DAILY [facility] Vital Signs 07/05/17 07/05/17 07/05/17 12:41 12:45 12:50 Temperature 98.1 F Pulse Rate 86 82 82 Respiratory 16 17 18 Rate Blood Pressure 79/42 79/36 78/36 (mmHg) O2 Sat by Pulse 98 96 96 Oximetry 07/05/17 07/05/17 07/05/17 12:55 13:00 13:16 Temperature 98.1 F Pulse Rate 79 80 76 Respiratory 18 16 14 Rate Blood Pressure 89/40 84/44 87/39 (mmHg) O2 Sat by Pulse 94 99 100 Oximetry Oxygen Devices in Use Now: Nasal Cannula - 4L Appearance: Elderly, F, laying in bed in NAD Eyes: No Scleral Icterus Ears/Nose/Mouth/Throat: - - Dry MM Neck: NL Appearance and Movements; NL JVP Respiratory: Symmetrical Chest Expansion and Respiratory Effort, Clear to Auscultation Cardiovascular: NL Sounds; No Murmurs; No JVD, RRR Abdominal: - - Soft, non-distended, TTP diffusely, mostly in RLQ, BS+, no rebound/guarding Lymphatic: No Cervical Adenopathy Extremities: No Edema Skin: No Rash or Ulcers Neurological: - - Lethargic, no focal deficits Result Diagrams: 07/05/17 06:14 07/05/17 06:14 Assess/Plan/Problems-Billing Assessment: Sepsis 2/2 perforated appendix in a 72 yo F with hx of GERD, asthma, intellectual disability, recent DVT on xarelto - Patient Problems (1) Sepsis Current Visit: Yes Comment: 2/2 perforated appendix. Appreciate surgery assistance, patient to OR urgently this morning. ABx changed to Zosyn, will cover any possible urinary pathogens as well. Continue IVF and bolus as needed. (2) Hypokalemia Current Visit: No Comment: Replete (3) DVT (deep venous thrombosis) Current Visit: Yes Comment: Diagnosed earlier this month at [facility], will work on obtaining the imaging. In the post-op period will hold Xarelto until tomorrow (4) Asthma Current Visit: Yes Comment: Dulera, prn albuterol (5) DVT prophylaxis Current Visit: No Comment: SCDs
[2017-07-05] MEDS ORDERED: ZOSYN 3.375 GM Q6H - Intermittant 30 min Infusion IVPB SCH ×4 (13:30→22:30)
--- NOTE | 2017-07-05 13:37 | HP ---
CC: Dr. Mixon * HISTORY AND PHYSICAL: DATE OF ADMISSION: 07/04/17 CHIEF COMPLAINT: Vomiting. HISTORY OF PRESENT ILLNESS: Ms. Gonsales is a 72-year-old woman with mild mental retardation who is a poor historian. She reports that she feels sick the last 3 weeks. She lives in a [facility] and review of records show that she had explosive diarrhea and vomiting today. She has been vomiting for 3 days. The patient admits to abdominal pain. She also admits to cough. She denies any fever. She does admit to dysuria, denies any hematuria. The patient when asked how long everything lasts, she says it has been lasting for 3 weeks. Review of the chart shows that she was admitted to this hospital on 05/24 due to a fall and a prolonged time on the ground. She was treated for a CPK elevation and sent to [facility] at that point. PAST MEDICAL HISTORY: Includes mild mental retardation, GERD, asthma, osteoporosis, nasal polyposis. PAST SURGICAL HISTORY: None. MEDICATIONS: On admission are: 1. Abilify 20 mg daily. 2. Acetaminophen as needed. 3. Albuterol inhaler 2 puffs q.i.d. p.r.n. 4. Fosamax 30 mg weekly. 5. Calcium and vitamin D 1 tablet p.o. daily. 6. Vitamin D 400 international units p.o. daily. 7. Flovent HFA 220 mcg 2 puffs inhaled daily. 8. Magnesium oxide 800 mg p.o. daily. 9. Mirtazapine 7.5 mg p.o. q.h.s. 10. Olanzapine 5 mg p.o. daily. 11. MiraLAX 17 g mixed with water daily. 12. Potassium chloride 10 mEq p.o. daily. 13. Ranitidine 3 mg p.o. q. p.m. 14. Xarelto 20 mg p.o. daily. 15. Triamcinolone cream topically. ALLERGIES: Include SULFA DRUGS. FAMILY HISTORY: Not obtainable at this time. 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 She never was . No children. Her sister, Karyna is her healthcare proxy. REVIEW OF SYSTEMS: Not obtainable due to patient being a poor historian. PHYSICAL EXAMINATION GENERAL: She is alert, no acute distress. VITAL SIGNS: Temperature is 36.2, pulse 108, respirations 21, blood pressure is 122/50, oxygen saturation 98%. HEENT: Head is normocephalic, atraumatic. Sclerae anicteric. Pupils are equal , round, and reactive to light and accommodation. Oropharynx is dry, no lesions. NECK: No JVD. No carotid bruits. No thyromegaly. LUNGS: Clear to auscultation and percussion bilaterally. HEART: Tachycardic, regular. No murmurs. ABDOMEN: Tender in the right lower quadrant, soft. No masses. No hepatosplenomegaly. RECTAL: Shows yellow liquid stool. No blood. No tenderness. No masses. NEUROLOGIC: Cranial nerves II through XII are grossly intact. The patient is not compliant with a full neurologic exam. She is not really following commands , but she is moving all extremities with equal power. She is alert and oriented to person. SKIN: Exam is notable for erythematous dry plaques scattered across the back with fine scales. There is also a nonblanching erythema at the coccyx consistent with a stage 1 pressure ulcer. LABORATORY DATA: Sodium 141, potassium 3.5, chloride 103, bicarbonate 29, BUN 29, creatinine 0.68, glucose 133, calcium 9.7, albumin 3.0, AST 18, ALT is 11, bilirubin 0.8, lactic acid 1.0. White count 12.5, hemoglobin 13.0, hematocrit 40%, platelets 246. Urinalysis shows 1+ protein, positive nitrite, 3+ leukocyte esterase. EKG shows sinus tachycardia, T-wave flattening in V3 to V4. Chest x-ray is negative for infiltrates or effusions. ASSESSMENT/PLAN: A 72-year-old woman presenting with abdominal pain, nausea, and vomiting. Differential would include UTI, diverticulitis, gastroenteritis, C. diff, appendicitis. She will have a CT abdomen and pelvis with contrast overnight to assess for the above causes. At this time, urine suggests infection, which will be treated with ceftriaxone intravenously. We will also keep her hydrated with IV fluids and give antiemetics as needed. If she has further diarrhea, we will send stool for C. diff and culture. The patient is dehydrated with elevated BUN and dry mouth. She is at risk of acute kidney injury, but does not have any kidney disease at this time. We will give her IV crystalloids and reassess in the morning. The patient is on Xarelto for unclear reasons and this could be continued for DVT prophylaxis. No clinically apparent bleeding at this time. Code status is full. I discussed the case with the patient's sister, Karyna, and she is aware of the patient's admission and differential and she confirms the code status. [id number]/[facility] #: [id number] MTDD
--- NOTE | 2017-07-05 15:41 | PN ---
Hospitalist Progress Note Patient evaluate in ICU post-operatively. Persistent hypotension in PACU and patient received 4L IVF. In ICU SBPs in 80s-90s, HR in 60s. Patient mentating well, denies pain at this time. Will continue LR at 150 cc/hr as ordered by Surgery. Spoke with Dr. Bran who recommended steroids for likely component of adrenal insufficiency. Will start IV Hydrocortisone 50 mg q8h.
[2017-07-05] MEDS: Hydrocortisone INJ* 100 MG VIAL IV SCH (15:43)
--- NOTE | 2017-07-05 17:24 | CONS ---
CC: [facility]; [facility]; [facility] * CONSULTATION REPORT: DATE OF CONSULT: 07/05/17 REFERRING PROVIDER: Dr. Jossue Champion. REASON FOR CONSULTATION: Right lower quadrant abdominal pain and acute appendicitis. HISTORY OF PRESENT ILLNESS: Ms. Demetrice Gonsales is a very pleasant 72-year-old woman who presently lives at [facility] where she was admitted almost a month ago after being discharged from [facility] after a fall. She was admitted there for rehabilitation. Apparently, she had not been feeling well the last several days. She was seen yesterday by the [facility] nurse practitioner and was sent to the emergency room last night for evaluation. When seen there, she was noted to be afebrile with stable vital signs. The patient is mentally challenged. It was difficult to obtain an adequate history , but she was noted to have lower abdominal discomfort. Laboratory values included a white blood cell count of 12,000 and she had a urinalysis, which showed leukocyte esterase and 3+ white blood cells and 3+ bacteria and there was a concern for pyelonephritis versus urinary tract infection. She was started on IV ceftriaxone and in light of her lower abdominal discomfort felt to be out of proportion for a urinary tract infection and/or pyelonephritis, she underwent a CT scan of the abdomen and pelvis, which was done early this morning. This has been reviewed and read by the [facility] radiologist and shows findings consistent with acute appendicitis with probable perforation and appendicolith. There is no noted abscess and there were no other acute findings on the CT scan. She has been admitted to the hospitalist service and surgical consultation is being obtained today. Also of note is that she apparently had some swelling in the lower extremity and underwent an ultrasound, which showed a deep vein thrombosis 2 to 3 weeks ago and she was started on Xarelto. We do not have this report and we are obtaining this to see the extent of the deep vein thrombosis. She last took her Xarelto yesterday. Her entire past medical history is per review of the chart as the patient is a poor historian. PAST MEDICAL HISTORY: 1. Gastroesophageal reflux disease. 2. Hypertension. 3. Hypercholesterolemia. 4. She is mentally challenged, mildly. 5. She has asthma. 6. She has osteoporosis. PAST SURGICAL HISTORY: Past abdominal surgery is none. MEDICATIONS: Include, 1. Tylenol. 2. Fosamax. 3. Potassium. 4. Xarelto b.i.d. 5. Ranitidine. 6. Olanzapine. 7. Flovent. 8. Abilify. ALLERGIES: To ASPIRIN and SULFA, which causes a rash. FAMILY HISTORY: Unable to be obtained from the patient. SOCIAL HISTORY: She denies tobacco or alcohol use. She is a full code status. Her healthcare proxy is her sister Karyna who lives in the area and is aware that she has been hospitalized. REVIEW OF SYSTEMS: Otherwise per above and unable to be obtained from the patient. PHYSICAL EXAM: Temperature 99.3, pulse 98, blood pressure 92/60. General: She is a slender female, is quite pleasant, awake, alert, does not appear to be in acute distress. She is oriented to name but not place or time. Lungs were clear with diminished breath sounds at the bases. Heart was regular rate and rhythm, slightly rapid. Her abdomen is soft and slightly distended. She had diminished bowel sounds throughout. There is no prior surgical incisions or hernias. She has tenderness with some localized guarding in the right lower quadrant in the suprapubic area. She has no generalized peritonitis. DIAGNOSTIC STUDIES/LAB DATA: I did review the CT scan images. There appeared to be findings consistent with acute appendicitis with probable perforation and some extraluminal air and appendicolith. There is no abscess. No significant amount of free peritoneal fluid. IMPRESSION: 1. Acute appendicitis. 2. Recent deep vein thrombosis, on Xarelto. Her last dose of Xarelto was yesterday. 3. Multiple medical issues as above including being mentally challenged. PLAN: 1. The patient has been admitted to the hospitalist service and has been started on ceftriaxone but after discussion with Dr. Jaime Morrissey from the hospitalist service, she will be switched to Zosyn. 2. She will be kept n.p.o. 3. Her potassium is being repleted. 4. After reviewing her CT scan and her physical exam and history, I recommend to proceed with a laparoscopic appendectomy today. 5. We are obtaining the history of the deep vein thrombosis workup and ultrasound to see the extent of the clot. She has been off her Xarelto now for 24 hours, which is the recommended minimum time for elective or urgent surgery. In discussion with Dr. Morrissey, we will expect some thrombotic risk being off anticoagulation during surgery but this does not appear to be an optimal case for long-term IV antibiotics and treatment of acute appendicitis. This does not appear to be a situation where we would treat with IV antibiotics and avoid the surgery in this situation. 6. The care will be discussed with her sister, Karyna. [id number]/[facility] #: [id number] EMILEE
[2017-07-05] MEDS ORDERED: cefTRIAXone VIAL(*) 1,000 MG in NS 0.9% 50 ML* 50 ML IVPB SCH (19:00)
[2017-07-05] MEDS: Morphine INJ* 2 MG/ML 1 ML SYRINGE (TWO MG - NEW SYRINGE VERSION) IV PRN (20:20)
[2017-07-05] MEDS: Enoxaparin(*) 60 MG/0.6 ML SYR SUBCUT SCH (20:20)
[2017-07-05] MEDS: Mirtazapine TAB* 15 MG PO SCH (20:40)
[2017-07-06] MEDS: Hydrocortisone INJ* 100 MG VIAL IV SCH ×3 (00:17→16:06)
[2017-07-06] MEDS: ZOSYN 3.375 GM Q8H per EXTENDED INFUSION IVPB SCH ×6 (00:18→16:06)
[2017-07-06] MEDS: Morphine INJ* 2 MG/ML 1 ML SYRINGE (TWO MG - NEW SYRINGE VERSION) IV PRN (02:02)
[2017-07-06] MEDS ORDERED: Atropine SYRINGE* 0.1 MG/ML 10 ML SYRINGE (1 MG) ONE (07:31)
[2017-07-06] MEDS: Enoxaparin(*) 60 MG/0.6 ML SYR SUBCUT SCH (07:50)
[2017-07-06] MEDS: Mometasone/Formoter 200/5 MDI INH SCH (08:58)
[2017-07-06 09:28] LABS: Hematocrit 31 % (35-47); Hemoglobin 9.6 g/dl (12.0-16.0); Mean Corpuscular HGB Conc 32 g/dl (31-36); Mean Corpuscular Hemoglobin 26 pg (27-31); Mean Corpuscular Volume 84 fL (80-97); Mean Platelet Volume 10 um3 (7.4-10.4); Red Blood Count 3.66 10^6/ul (4.0-5.4); Red Cell Distribution Width 17 % (10.5-15); White Blood Count 4.4 10^3/ul (3.5-10.8)
--- NOTE | 2017-07-06 09:32 | PN ---
Progress Note - Progress Note Date of Service: 07/06/17 SOAP: Subjective: She denies pain, N/V. Objective: Vital Signs Temp 98.6 F 07/06/17 08:00 Pulse 41 07/06/17 08:01 Resp 15 07/06/17 08:01 BP 90/44 07/06/17 08:01 Pulse Ox 96 07/06/17 08:58 Gen: Awake, alert, sitting up in bed. Abd: ND; incis c/d/i; no erythema; soft and minimally tender. RENY drain with serous drainage. Intake & Output 07/05/17 07/06/17 07/06/17 18:59 06:59 18:59 Intake Total 4000 2978 Output Total 685 290 75 Balance 3315 2688 -75 Weight 166 lb 0.129 oz Intake: IV Fluids 4000 2672 LR 4000 2588 NS (0.9%) 84 IVPB 206 ABX - ZOSYN 206 Oral 100 Output: RENY #1 70 40 Sanders 565 250 75 Emesis 50 Other: Estimated Void Small Date of Last Bowel 1 07/05/17 Movement # Bowel Movements 0 Estimated Stool Amount Small Small # Voids 1 Laboratory Results - last 24 hr 07/05/17 07/06/17 06:14 09:22 WBC 4.4 RBC 3.66 L Hgb 9.6 L Hct 31 L MCV 84 MCH 26 L MCHC 32 RDW 17 H Plt Count 190 MPV 10 Neut % (Auto) 87.3 H Lymph % (Auto) 7.4 L Garrett % (Auto) 5.1 Eos % (Auto) 0 Baso % (Auto) 0.2 Absolute Neuts (auto) 3.9 Absolute Lymphs (auto) 0.3 L Absolute Monos (auto) 0.2 Absolute Eos (auto) 0 Absolute Basos (auto) 0 Absolute Nucleated RBC 0 Nucleated RBC % 0.1 Blood Type A Negative Antibody Screen Negative Micro: Abscess GS = 3+GPC and 3+GNB Assessment: POD#1 s/p lap appy for perf appendicitis. Doing well. Plan: Adv diet as tolerated. OK to restart AC. Cont IV abx. Change to po on discharge to complete 7-10 days. D/c Sanders. Hospitalist f/u appreciated.
--- NOTE | 2017-07-06 09:40 | PN ---
Subjective Date of Service: 07/06/17 Interval History: Patient seen this morning with Dr. Wagner present. She reports feeling well. Denies any pain or SOB. Recalls she is in the hospital because she needed surgery, cannot recall what the surgery was for. Noted to be bradycardic at night at times, not symptomatic. Improved while awake this morning. Family History: Unchanged from Admission Social History: Unchanged from Admission Past Medical History: Unchanged from Admission Objective Active Medications: Albuterol (Ventolin Hfa Inhaler*) 2 puff INH Q4H PRN Aripiprazole (Abilify Tab*) 20 mg PO DAILY [facility] Cholecalciferol (Vitamin D Tab*) 400 unit PO DAILY [facility] Enoxaparin Sodium (Lovenox(*)) 50 mg SUBCUT Q12H HEIDY Hydrocortisone Sodium Succinate (Solu-Cortef*) 50 mg IV Q8H [facility] Lactated Ringer's (Lactated Ringers 1000 Ml Bag*) 1,000 mls @ 150 mls/hr IV PER RATE [facility] Piperacillin Sod/Tazobactam (Sod 3.375 gm/ Sodium Chloride) 100 mls @ 25 mls/ hr IVPB 0030,0830,1630 [facility] Mirtazapine (Remeron Tab*) 7.5 mg PO BEDTIME HEIDY Mometasone Furoate/Formoterol Fumar (Dulera 200/5 Mdi*) 2 puff INH DAILY [facility] Morphine Sulfate (Morphine Inj (Syringe)*) 2 mg IV Q3H PRN Olanzapine (Zyprexa * Tab Odt) 5 mg PO DAILY [facility] Pharmacy Consult (Zosyn Per Pharmacy*) 1 note FOLLOW UP .ZOSYN PER PHARMACY [facility] Potassium Chloride (Klor-Con Liquid*) 10 meq PO DAILY [facility] Vital Signs 07/05/17 07/05/17 07/05/17 12:41 12:45 12:50 Temperature 98.1 F Pulse Rate 86 82 82 Respiratory 16 17 18 Rate Blood Pressure 79/42 79/36 78/36 (mmHg) O2 Sat by Pulse 98 96 96 Oximetry 07/05/17 07/05/17 07/05/17 20:20 20:30 20:45 Temperature Pulse Rate 61 58 Respiratory 21 18 19 Rate Blood Pressure 90/50 89/43 (mmHg) O2 Sat by Pulse 98 97 Oximetry 11/07/06/17 07/06/17 06:31 06:46 07:00 Temperature Pulse Rate 39 39 39 Respiratory 14 15 15 Rate Blood Pressure 90/39 94/41 (mmHg) O2 Sat by Pulse 99 99 99 Oximetry 07/06/17 07/06/17 08:01 08:58 Temperature Pulse Rate 41 Respiratory 15 Rate Blood Pressure 90/44 (mmHg) O2 Sat by Pulse 95 96 Oximetry Oxygen Devices in Use Now: Nasal Cannula - 1L Appearance: Elderly, F, laying in bed in NAD Eyes: No Scleral Icterus Ears/Nose/Mouth/Throat: Mucous Membranes Moist Neck: NL Appearance and Movements; NL JVP Respiratory: Symmetrical Chest Expansion and Respiratory Effort, Clear to Auscultation Cardiovascular: NL Sounds; No Murmurs; No JVD, RRR Abdominal: - - Soft, non-tender, non-distended, dressings in place with RENY drain Lymphatic: No Cervical Adenopathy Extremities: No Edema Skin: No Rash or Ulcers Neurological: - - Alert, oriented, no focal deficits Lines/Tubes/Other Access: Clean, Dry and Intact Sanders Result Diagrams: 07/06/17 09:22 07/06/17 09:22 Microbiology and Other Data: Microbiology 07/05/17 11:34 Skin and Soft Tissue MRSA/MSSA (PCR - Final Misc Source (See Comment) - Peritoneal Mrsa Negative S.aureus Positive Gram Stain - Final Assess/Plan/Problems-Billing Assessment: Septic shock 2/2 perforated appendix in a 72 yo F with hx of GERD, asthma, intellectual disability, recent DVT on xarelto - Patient Problems (1) Sepsis Current Visit: Yes Comment: 2/2 perforated appendix. Appreciate surgery assistance, patient to OR urgently on 07/05 for lap appy. Continue Zosyn. BPs remain relatively soft but patient asymptomatic. HR normal/slow. Continue IVF and stress dose steroids. ADAT. (2) Bradycardia Current Visit: Yes Comment: HR dropped to 40s and breifly into 30s at times, asymptomatic. Will get post-op EKG (3) Hypokalemia Current Visit: No Comment: Repleted, labs pending today (4) DVT (deep venous thrombosis) Current Visit: Yes Comment: Diagnosed with R common femoral vein DVT on 06/19, has been on Xarelto. Plan was to remain off blood thinners for 24 hours, overnight patient was started on SQ Lovenox 50 mg. Will switch back to PO Xarelto today, OKed with surgery. (5) Asthma Current Visit: Yes Comment: Genaroera, prn albuterol (6) DVT prophylaxis Current Visit: No Comment: Resume Xarelto today Status and Disposition: Inpatient for additional 24 hours of IV ABx, potential d/c 07/07
[2017-07-06 09:42] LABS: BUN/Creatinine Ratio 47.8 (8-20); EGFR African American 172.2 (>60); EGFR Non-African American 133.9 (>60); Potassium 3.9 mmol/L (3.5-5.0)
[2017-07-06] MEDS: Potassium Chlor TAB* 10 MEQ TAB.ER PO SCH (10:15)
[2017-07-06] MEDS: Cholecalciferol TAB* 400 UNIT PO SCH (10:27)
[2017-07-06] MEDS: ARIPiprazole TAB* 20 MG PO SCH ×2 (10:27→10:36)
[2017-07-06] MEDS: Potassium Chloride LIQUID* 20 MEQ PACKET PO SCH (10:27)
[2017-07-06] MEDS: OLANzapine TAB*ODT* 5 MG PO SCH (10:27)
[2017-07-06] MEDS: Rivaroxaban TAB(*) 15 MG PO SCH ×2 (10:36→21:15)
--- NOTE | 2017-07-06 10:49 | OP ---
CC: Rick Mixon MD * DATE OF SURGERY: 07/05/17 - ROOM #ICU-03 DATE OF : 47 SURGEON: Rick Wagner MD. CHIEF LOCK OPERATOR: None. ANESTHESIOLOGIST: Dr. Camejo. ANESTHESIA: General endotracheal. PRE-OP DIAGNOSIS: Acute appendicitis with perforation. POST-OP DIAGNOSIS: Acute appendicitis with perforation. OPERATIVE PROCEDURE: Laparoscopic appendectomy. ESTIMATED BLOOD LOSS: Less than 10 mL. IV FLUIDS: 1.9 L crystalloid. SPECIMENS: 1. Appendix and fecalith. 2. Abscess fluid culture. DRAINS: 7 mm Gómez-Sweeney. COMPLICATIONS: None. COUNTS: Instrument, needle, sponge counts were correct. DESCRIPTION OF PROCEDURE: The patient was brought to the operating room and placed on the table supine. She had sequential compression devices placed on both lower extremities. She was padded and positioned appropriately. She was administered general anesthesia. She had a Sanders catheter placed. Abdomen was prepped and draped in the usual sterile fashion and a time-out was performed. Local anesthetic was infiltrated into the skin and soft tissue prior to making each incision. Entry to the abdomen was through a transumbilical vertical incision using an open technique. After accessing the peritoneal cavity, a 12- mm trocar was placed. Carbon dioxide was insufflated to a pressure of 15 mmHg. Under direct visualization, 5-mm trocars were placed in the suprapubic midline and also in the left lower quadrant. Inspection revealed fibrinous exudate overlying small bowel, in the pelvis. This fibrinous exudate was also noted along the pelvic sidewall on the right side. There was some murky fluid in the pelvis. No evidence of pus at this point. The patient was positioned in Trendelenburg with right side up. The small bowel was mobilized from the pelvis. The cecum was identified and the ileum was followed to the ileocecal junction. The tip of the appendix was identified and this was elevated, this from the ileum and within the fold of the mesentery. A small amount of purulent fluid was forthcoming and this was cultured and submitted to microbiology. Suction was used to aspirate the remaining purulent fluid and then blunt dissection was performed to separate out the appendix, which was clearly ruptured and there was visible fecal material emanating from the ruptured site. The base of the appendix appeared to be intact at the cecum and this was elevated and then a window created in the mesentery of the appendix at this site and the appendix was divided from the cecum with the Endo DECLAN stapler with a calhoun cartridge. The mesentery of the appendix was then divided with the Endo DECLAN stapler with a desai cartridge. The appendix was placed into a retrieval bag and retrieved through the umbilical site. There were some residual fecalith, which was removed separately using a spoon biopsy forceps and then a copious lavage of the pelvis was performed with 4 L of warmed saline. Inspection revealed hemostasis to be excellent. Due to the extended irrigation and the presence of an abscess, a 7 mm Gómez-Sweeney drain was placed into the pelvis and positioned with the end of the drain near the site where the abscess had been noted in the mesentery. The drain was sutured to skin with 3-0 Prolene. The ports were removed under direct visualization and carbon dioxide was released. The umbilical wound was closed with 0 Polysorb in a [id number] fashion to approximate the fascia. The other wounds were irrigated and closed with 4-0 Monocryl in subcuticular fashion and then Steri- Strips were applied to the left lower quadrant wound, dry dressing applied to the umbilical wound, and drain sponge applied at the drain site. The drain was placed to suction bulb as well. The patient tolerated the procedure well. She was subsequently extubated and transferred to the recovery room in stable condition. [id number]/[facility] #: [id number]
[2017-07-06] MEDS: OLANzapine TAB* 5 MG PO SCH (11:08)
[2017-07-06] MEDS: Mirtazapine TAB* 15 MG PO SCH (21:15)
[2017-07-07] MEDS: Hydrocortisone INJ* 100 MG VIAL IV SCH ×3 (00:37→16:17)
[2017-07-07] MEDS: ZOSYN 3.375 GM Q8H per EXTENDED INFUSION IVPB SCH ×4 (00:38→07:55)
[2017-07-07 06:56] LABS: Hematocrit 30 % (35-47); Hemoglobin 9.4 g/dl (12.0-16.0); Mean Corpuscular HGB Conc 32 g/dl (31-36); Mean Corpuscular Hemoglobin 27 pg (27-31); Mean Corpuscular Volume 83 fL (80-97); Mean Platelet Volume 9 um3 (7.4-10.4); Red Blood Count 3.55 10^6/ul (4.0-5.4); Red Cell Distribution Width 16 % (10.5-15); White Blood Count 5.7 10^3/ul (3.5-10.8)
[2017-07-07] MEDS: Potassium Chloride LIQUID* 20 MEQ PACKET PO SCH (08:12)
[2017-07-07] MEDS: Rivaroxaban TAB(*) 15 MG PO SCH ×2 (08:12→21:49)
[2017-07-07] MEDS: ARIPiprazole TAB* 20 MG PO SCH (08:12)
[2017-07-07] MEDS: Cholecalciferol TAB* 400 UNIT PO SCH (08:13)
--- NOTE | 2017-07-07 09:21 | PN ---
Subjective Date of Service: 07/07/17 Interval History: Patient seen this morning. Reports feeling well overall aside from some abdominal pain around the "belly button". No fever or chills. Denies SOB. Has moved her bowels, seems to be tolerating PO. Family History: Unchanged from Admission Social History: Unchanged from Admission Past Medical History: Unchanged from Admission Objective Active Medications: Albuterol (Ventolin Hfa Inhaler*) 2 puff INH Q4H PRN PRN Reason: SOB/WHEEZING Amoxicillin/Clavulanate Potassium (Augmentin Tab*) 875 mg PO BID [facility] Aripiprazole (Abilify Tab*) 20 mg PO DAILY [facility] Last Admin: 07/07/17 08:12 Dose: 20 mg Cholecalciferol (Vitamin D Tab*) 400 unit PO DAILY [facility] Last Admin: 07/07/17 08:13 Dose: 400 unit Hydrocortisone Sodium Succinate (Solu-Cortef*) 50 mg IV Q8H [facility] Last Admin: 07/07/17 08:11 Dose: 50 mg Lactated Ringer's (Lactated Ringers 1000 Ml Bag*) 1,000 mls @ 75 mls/hr IV PER RATE [facility] Mirtazapine (Remeron Tab*) 7.5 mg PO BEDTIME [facility] Last Admin: 07/06/17 21:15 Dose: 7.5 mg Mometasone Furoate/Formoterol Fumar (Dulera 200/5 Mdi*) 2 puff INH DAILY [facility] Last Admin: 07/06/17 08:58 Dose: 2 puff Morphine Sulfate (Morphine Inj (Syringe)*) 2 mg IV Q3H PRN PRN Reason: PAIN - MODERATE Last Admin: 07/06/17 02:02 Dose: 2 mg Olanzapine (Zyprexa * Tab Odt) 5 mg PO DAILY [facility] Last Admin: 07/06/17 10:27 Dose: 5 mg Pharmacy Consult (Zosyn Per Pharmacy*) 1 note FOLLOW UP .ZOSYN PER PHARMACY [facility] Potassium Chloride (Klor-Con Liquid*) 10 meq PO DAILY [facility] Last Admin: 07/07/17 08:12 Dose: 10 meq Rivaroxaban (Xarelto(*)) 15 mg PO BID [facility] Last Admin: 07/07/17 08:12 Dose: 15 mg Vital Signs 07/06/17 07/06/17 07/06/17 09:31 09:57 10:00 Temperature Pulse Rate 65 52 45 Respiratory 20 14 14 Rate Blood Pressure 108/47 84/41 84/36 (mmHg) O2 Sat by Pulse 95 97 99 Oximetry 07/07/17 07/07/17 07/07/17 01:17 01:30 02:00 Temperature Pulse Rate 46 54 43 Respiratory 19 18 18 Rate Blood Pressure 84/40 91/57 93/44 (mmHg) O2 Sat by Pulse 100 99 100 Oximetry 07/07/17 07/07/17 07/07/17 07:30 07:32 08:00 Temperature 98.6 F Pulse Rate 38 60 Respiratory 17 11 Rate Blood Pressure 96/45 106/53 (mmHg) O2 Sat by Pulse 100 98 Oximetry Oxygen Devices in Use Now: Nasal Cannula - 2L Appearance: Elderly, F, laying in bed in NAD Eyes: No Scleral Icterus Ears/Nose/Mouth/Throat: Mucous Membranes Moist Neck: NL Appearance and Movements; NL JVP Respiratory: Symmetrical Chest Expansion and Respiratory Effort, - - Absent in B /L bases, otherwise clear Cardiovascular: NL Sounds; No Murmurs; No JVD, RRR Abdominal: - - Soft, non-distended, mild TTP in suprapubic area, RENY drain in place, BS+ Lymphatic: No Cervical Adenopathy Extremities: - - B/L LE edema, R>L Neurological: - - Alert, no focal deficits Result Diagrams: 07/07/17 05:30 07/06/17 09:22 Microbiology and Other Data: . Assess/Plan/Problems-Billing Assessment: Septic shock 2/2 perforated appendix in a 72 yo F with hx of GERD, asthma, intellectual disability, recent DVT on xarelto - Patient Problems (1) Sepsis Current Visit: Yes Comment: Septic shock. 2/2 perforated appendix. Appreciate surgery assistance, patient to OR urgently on 07/05 for lap appy. Transition to PO Augmentin. BPs slowly improving, continue Hydrocortisone. Patient developing some hypoxia and peripheral edema, d/c IVF, incentive spirometer, wean O2 as able. Lasix if BPs allow. (2) Bradycardia Current Visit: Yes Comment: Continues to have asymptomatic bradycardia, mostly when asleep. EKG shows no new ischemic changes. (3) Hypokalemia Current Visit: No Comment: Resolved (4) DVT (deep venous thrombosis) Current Visit: Yes Comment: Diagnosed with R common femoral vein DVT on 06/19, continue Xarelto. (5) Asthma Current Visit: Yes Comment: Dulera, prn albuterol (6) DVT prophylaxis Current Visit: No Comment: Xarelto Status and Disposition: Inpatient for another 24 hours for monitoring, wean O2
[2017-07-07] MEDS: Mometasone/Formoter 200/5 MDI INH SCH (09:36)
--- NOTE | 2017-07-07 12:20 | PN ---
Progress Note - Progress Note Date of Service: 07/07/17 SOAP: Subjective: She reports "pain in the belly button". Just arrived to [facility] from ICU. Objective: Vital Signs Temp 98.6 F 07/07/17 07:32 Pulse 62 07/07/17 11:01 Resp 18 07/07/17 11:01 BP 103/48 07/07/17 11:01 Pulse Ox 94 07/07/17 11:01 Gen: NAD Abd: incisions c/d/i; no erythema; RENY intact with serous o/p; mild tenderness. Intake & Output 07/06/17 07/07/17 07/07/17 18:59 06:59 18:59 Intake Total 1620 2591 Output Total 330 350 Balance 1290 2241 Weight 164 lb 7.437 oz Intake: IV Fluids 1400 2351 ABX - ZOSYN 105 58 LR 1271 2293 NS (0.9%) 24 IVPB 240 ABX - ZOSYN 240 Oral 220 Output: RENY #1 30 50 Sanders 300 Straight Cath 300 Other: Date of Last Bowel 07/07/17 Movement # Bowel Movements 1 1 Estimated Stool Amount Small Large # Voids 0 Laboratory Results - last 24 hr 07/07/17 05:30 WBC 5.7 RBC 3.55 L Hgb 9.4 L Hct 30 L MCV 83 MCH 27 MCHC 32 RDW 16 H Plt Count 203 MPV 9 Microbiology 07/05/17 11:34 Anaerobic Culture - Preliminary Misc Source (See Comment) - Peritoneal Bacteroides Fragilis Skin and Soft Tissue MRSA/MSSA (PCR - Final Mrsa Negative S.aureus Positive Gram Stain - Final Wound Culture - Preliminary Bacteroides Fragilis Escherichia Coli Staphylococcus Aureus 07/04/17 03:53 Stool Gross Appearance - Final Stool Shiga Toxin I & II - Final Negative Shiga Toxin 1 & 2 07/04/17 20:32 Aerobic Blood Culture - Preliminary Blood Venous No Growth Day 2 Anaerobic Blood Culture - Preliminary No Growth Day 2 07/04/17 20:21 Aerobic Blood Culture - Preliminary Blood Venous No Growth Day 2 Anaerobic Blood Culture - Preliminary No Growth Day 2 07/04/17 20:50 Urine Culture - Final Urine Escherichia Coli Assessment: POD#2 s/p lap appy for perf. Improved on abx. DVT on Xarelto. Plan: Ok to transition to po abx at d/c. D/C RENY today/tomorrow. Discharge per Hospitalist.
[2017-07-07] MEDS: Morphine INJ* 2 MG/ML 1 ML SYRINGE (TWO MG - NEW SYRINGE VERSION) IV PRN ×2 (12:21→18:06)
[2017-07-07] MEDS: OLANzapine TAB*ODT* 5 MG PO SCH (13:08)
[2017-07-07] MEDS: Amoxicillin/Clavulanate TAB* 875 MG PO SCH (16:16)
[2017-07-07] MEDS ORDERED: Furosemide IV* 10 MG/ML 2 ML VIAL (20 MG) IV ONE (17:52)
[2017-07-07] MEDS: Mirtazapine TAB* 15 MG PO SCH (21:49)
[2017-07-08] MEDS: Hydrocortisone INJ* 100 MG VIAL IV SCH ×2 (00:23→09:01)
[2017-07-08] MEDS: Amoxicillin/Clavulanate TAB* 875 MG PO SCH (05:44)
[2017-07-08] MEDS: ARIPiprazole TAB* 20 MG PO SCH (08:57)
[2017-07-08] MEDS: Cholecalciferol TAB* 400 UNIT PO SCH (08:58)
[2017-07-08] MEDS: Rivaroxaban TAB(*) 15 MG PO SCH (08:58)
[2017-07-08] MEDS: OLANzapine TAB*ODT* 5 MG PO SCH (08:59)
[2017-07-08] MEDS: Potassium Chloride LIQUID* 20 MEQ PACKET PO SCH (09:00)
[2017-07-08] MEDS: Mometasone/Formoter 200/5 MDI INH SCH (09:38)
[2017-07-08 11:36] VITALS: BP 94/35
--- NOTE | 2017-07-08 12:28 | PN ---
Subjective Date of Service: 07/08/17 Interval History: Patient seen this afternoon, lethargic at first but then woke, was responsive. Says she feels OK overall, some abdominal pain, mostly with palpation. As per nursing patient has been incontinent of urine this morning as well as stool. Patient says she has not been eating much but will try to have some lunch. Family History: Unchanged from Admission Social History: Unchanged from Admission Past Medical History: Unchanged from Admission Objective Active Medications: Albuterol (Ventolin Hfa Inhaler*) 2 puff INH Q4H PRN Amoxicillin/Clavulanate Potassium (Augmentin Tab*) 875 mg PO BID@0600,1800 [facility] Aripiprazole (Abilify Tab*) 20 mg PO DAILY [facility] Cholecalciferol (Vitamin D Tab*) 400 unit PO DAILY [facility] Hydrocortisone Sodium Succinate (Solu-Cortef*) 50 mg IV Q8H [facility] Mirtazapine (Remeron Tab*) 7.5 mg PO BEDTIME [facility] Mometasone Furoate/Formoterol Fumar (Dulera 200/5 Mdi*) 2 puff INH DAILY [facility] Morphine Sulfate (Morphine Inj (Syringe)*) 2 mg IV Q3H PRN Olanzapine (Zyprexa * Tab Odt) 5 mg PO DAILY [facility] Pharmacy Consult (Zosyn Per Pharmacy*) 1 note FOLLOW UP .ZOSYN PER PHARMACY [facility] Potassium Chloride (Klor-Con Liquid*) 10 meq PO DAILY [facility] Rivaroxaban (Xarelto(*)) 15 mg PO BID [facility] Vital Signs 07/07/17 07/07/17 07/07/17 13:32 15:51 15:57 Temperature 98.2 F Pulse Rate 58 Respiratory 18 16 Rate Blood Pressure 114/42 (mmHg) O2 Sat by Pulse 98 98 Oximetry 07/08/17 07/08/17 09:00 11:27 Temperature 98.3 F Pulse Rate 52 Respiratory 16 18 Rate Blood Pressure 94/35 (mmHg) O2 Sat by Pulse 96 Oximetry Oxygen Devices in Use Now: None Appearance: Elderly, F, laying in bed in NAD Eyes: No Scleral Icterus Ears/Nose/Mouth/Throat: - - Dry MM Neck: NL Appearance and Movements; NL JVP Respiratory: Symmetrical Chest Expansion and Respiratory Effort, Clear to Auscultation - in anterior and lateral andrews Cardiovascular: NL Sounds; No Murmurs; No JVD, RRR Abdominal: - - Soft, non-distended, mild TTP in lower quadrants and epigastric area, BS+, no rebound/guarding, dressing in place, RENY drain Lymphatic: No Cervical Adenopathy Extremities: - - Mild LE edema Neurological: - - Alert, oriented to self, place, no focal deficits Result Diagrams: 07/07/17 05:30 07/06/17 09:22 Microbiology and Other Data: . Assess/Plan/Problems-Billing Assessment: Septic shock 2/2 perforated appendix in a 72 yo F with hx of GERD, asthma, intellectual disability, recent DVT on xarelto - Patient Problems (1) Sepsis Current Visit: Yes Comment: Septic shock. 2/2 perforated appendix. Appreciate surgery assistance, patient to OR urgently on 07/05 for lap appy. Continue PO Augmentin. BPs a bit soft but stable, continue Hydrocortisone but begin taper. Received IV Lasix yesterday, off O2, LE edema improving. Surgery to remove drain today. (2) Bradycardia Current Visit: Yes Comment: Continues to have asymptomatic bradycardia, mostly when asleep. EKG shows no new ischemic changes. (3) Hypokalemia Current Visit: No Comment: Resolved (4) DVT (deep venous thrombosis) Current Visit: Yes Comment: Diagnosed with R common femoral vein DVT on 06/19, continue Xarelto. (5) Asthma Current Visit: Yes Comment: Dulera, prn albuterol (6) DVT prophylaxis Current Visit: No Comment: Xarelto Status and Disposition: Inpatient, potential discharge today
[2017-07-08] MEDS ORDERED: Acetaminophen TAB* 325 MG PO PRN (12:46)
--- NOTE | 2017-07-08 12:57 | PN ---
Progress Note - Progress Note Date of Service: 07/08/17 Note: Surgery Progress: S: POD #3. On Augmentin. Denies pain. Not much appetite this a.m. Having BMs. Does not ambulate baseline. O: Vital Signs - 8 hr 07/08/17 07/08/17 07/08/17 07:57 09:00 11:27 Temperature 98.0 F 98.3 F Pulse Rate 56 52 Respiratory 17 16 18 Rate Blood Pressure 126/55 94/35 (mmHg) O2 Sat by Pulse 96 96 Oximetry Intake and Output Last 24 Hours 07/06/17 07/07/17 07/08/17 07/09/17 06:59 06:59 06:59 06:59 Intake Total 6978 4211 280 220 Output Total 975 680 50 Balance 6003 3531 230 220 Weight 166 lb 0.129 oz 164 lb 7.437 oz Intake: IV Fluids 6672 3751 ABX - ZOSYN 163 LR 6588 3564 NS (0.9%) 84 24 IVPB 206 240 ABX - ZOSYN 206 240 Oral 100 220 280 220 Output: RENY #1 110 80 50 Urine 0 Sanders 815 300 Straight Cath 300 Emesis 50 Other: Estimated Void Small Large Large Date of Last Bowel 07/05/17 07/07/17 Movement # Bowel Movements 0 1 0 Estimated Stool Amount Small Small Large # Voids 1 0 Gen: NAD Heart: reg, magaly Lungs: clear Abd: +BS; lap incisions look good; soft; nontender. RENY w/ clear serous drainage -> d/c'd. DSD placed. A: s/p lap appy for acute ruptured appendicitis, doing well P: per medicine, poss d/c back to SNF later today pending intake at lunch. I set up a surgical f/u w/ our office. She'll be d/c'd on po Augmentin.
--- NOTE | 2017-07-08 16:26 | DS ---
DATE OF ADMISSION: 07/04/2017. DATE OF DISCHARGE: 07/08/2017. Patient is a resident of [facility]. PRINCIPAL DISCHARGE DIAGNOSES: Perforated appendicitis, septic shock. SECONDARY DIAGNOSES: Mild mental retardation, GERD, asthma, osteoporosis. DISCHARGE MEDICATION REGIMEN: 1. Augmentin 875 mg by mouth 2 times daily times 21 tabs. 2. Hydrocortisone 50 mg by mouth 2 times daily, followed by 25 mg by mouth 2 times daily, followed by 10 mg by mouth 2 times daily. 3. Abilify 20 mg by mouth daily. 4. Calcium with vitamin D one tab by mouth daily. 5. Flovent two puffs inhaled daily. 6. Magnesium Oxide 800 mg by mouth daily. 7. MiraLax 17 gm by mouth daily. 8. Mirtazapine 7.5 mg by mouth at bedtime. 9. Olanzapine 5 mg by mouth daily. 10. Potassium Chloride 10 mEq by mouth daily. 11. Ranitidine 300 mg by mouth at bedtime. 12. Rivaroxaban 15 mg by mouth b.i.d. until July 10, followed by 20 mg by mouth daily. 13. Albuterol two puffs inhaled every 4 hours as needed for shortness of breath or wheezing. 14. Vitamin D 400 units by mouth daily. 15. Potassium Chloride 10 mEq by mouth daily. 16. Triamcinolone one application topical 2 times daily. 17. Alendronate 70 mg by mouth weekly. 18. Triamcinolone one application topical 2 times daily. 19. Tylenol 500 mg by mouth every 6 hours as needed for pain. CONSULTANTS DURING HOSPITALIZATION: Dr. Anand Salcedo, Surgery; Dr. Rick Wagner, Surgery. STUDIES DURING HOSPITALIZATION: 1. Chest x-ray, impression: No evidence for acute intrathoracic disease. 2. CT abdomen and pelvis with contrast: Impression: CT findings are most consistent with a perforated distal appendicitis likely related to an 8 mm appendicolith. Adjacent to the distal appendix, there is a small fluid collection and free air. Pathologically dilated proximal small bowel and air- fluid levels seen throughout most of the GI tract, likely reactive to the adjacent appendicitis. Cholelithiasis without signs of biliary obstruction or acute inflammatory change. Additional chronic and degenerative changes noted in the body of the report, unlikely to be directly related to the patient's appendicitis. HISTORY OF PRESENT ILLNESS AND HOSPITAL SUMMARY: Please see the full history and physical by Dr. Rick Champion for full details. Ms. Gonsales is a 72-year- old female with a past medical history as above who presented to the hospital with abdominal pain, diarrhea, and vomiting. The patient was initially diagnosed by the emergency department with a UTI and started on IV antibiotics. When she was assessed by the hospitalist, there was concern for possible abdominal pathology and a CT scan revealed what appeared to be a perforated appendicitis. Surgery was consulted and the patient went urgently to the OR where she underwent a laparoscopic appendectomy. The patient was sent to the PACU after the surgery and remained significantly hypotensive despite adequate fluid resuscitation. In speaking with Dr. Taylor, it was felt that the patient might have some adrenal insufficiency and she was started on stress dose steroids. Over the following days, the patient's blood pressures improved. She was able to tolerate a diet and was moving her bowels and passing urine with no issues. She was transitioned from IV Zosyn to oral Augmentin. The patient had recently been diagnosed with a right lower extremity DVT earlier this month. Her Xarelto was held prior to the surgery for 24 hours and then resumed on postop day one. She will continue on her b.i.d. dosing as noted above for a few additional days and then can switch to the 20 mg by mouth daily dosing. The patient will be discharged on a steroid taper and will complete ten additional days of oral antibiotics. She will follow-up with surgery as an outpatient. Total time spent on this discharge was 45 minutes. This is a summary of the hospitalization. Please see the full medical record for further details. [id number]/CPS #: [id number] MTDD
[2017-07-08] MEDS ORDERED: Hydrocortisone TAB* 10 MG PO SCH (21:00)
== END 2017-07-08 16:45 | DRG 853 ==
LOC: ED 17:04 → MEDTELE 22:05 → OBSVTOIN 07-05 10:40 → ICU 07-05 14:31 → SSU 07-07 11:23
PROVIDERS: ADMIT Internal Medicine; ATTEND Hospitalist
PROC: 0DTJ4ZZ Resection of Appendix, Percutaneous Endoscopic Approach (ICD-10-PCS; principal; 2017-07-05 10:30)
DX: A41.9 Sepsis, unspecified organism (principal); K35.2 Acute appendicitis with generalized peritonitis; R65.21 Severe sepsis with septic shock; I82.411 Acute embolism and thrombosis of right femoral vein; I95.9 Hypotension, unspecified; E27.40 Unspecified adrenocortical insufficiency; R00.1 Bradycardia, unspecified; E86.0 Dehydration; F70 Mild intellectual disabilities; E78.00 Pure hypercholesterolemia, unspecified; J33.9 Nasal polyp, unspecified; J45.909 Unspecified asthma, uncomplicated; K21.9 Gastro-esophageal reflux disease without esophagitis; M81.0 Age-related osteoporosis without current pathological fracture; I10 Essential (primary) hypertension; R40.2412 Glasgow coma scale score 13-15, at arrival to emergency department; E87.6 Hypokalemia; R09.02 Hypoxemia; R60.0 Localized edema; F41.9 Anxiety disorder, unspecified; K80.20 Calculus of gallbladder without cholecystitis without obstruction; Z88.2 Allergy status to sulfonamides; Z88.8 Allergy status to other drugs, medicaments and biological substances; Z86.718 Personal history of other venous thrombosis and embolism; Z79.52 Long term (current) use of systemic steroids; Z79.01 Long term (current) use of anticoagulants
CPT/HCPCS: 36415; 71020; 74177; 80048; 80053; 81003; 81015; 82272; 82550; 83605; 83630; 83690; 83735; 84484; 85025; 85027; 86140; 86850; 86900; 86901; 87040; 87045; 87046; 87070; 87073; 87076; 87077; 87086; 87185; 87186; 87205; 87493; 87640; 87641; 87899; 88304; 93005; 94640; 94760; A9270-GY; C1776; G0378; J0461; J0696; J1100; J1650; J1720; J1940; J2250; J2270; J2405; J2543; J2704; J3010; J3480; Q9967

== ENCOUNTER 2017-08-14 15:02 | Emergency (ER) | payer MEDICARE, MEDICAID ==
[2017-08-14] MEDS ORDERED: NS 0.9% 1000 ML*IV.FLUID IV ONE (15:28)
--- NOTE | 2017-08-14 15:56 | RAD ---
Indication: Sepsis. History of asthma. Altered mental status. Comparison: July 05, 2017 CT abdomen. Technique: Upright AP 1535 hours Report: Leftward rotation limiting assessment of the LEFT lung base due to superimposed mediastinal structures. No gross pulmonary infiltrate, focal pulmonary lesion, pleural effusion, pneumothorax. Negative for cardiomegaly. Unremarkable central pulmonary vasculature. Negative for free air beneath the diaphragm. IMPRESSION: Limited exam due to leftward rotation without compelling acute intrathoracic process.
[2017-08-14] MEDS ORDERED: Acetaminophen SUPP* 650 MG SUPP PR ONE (15:57)
[2017-08-14 16:21] LABS: ABS Basophils 0 10^3/ul (0-0.2); ABS Eosinophils 0 10^3/ul (0-0.6); ABS Lymphocytes 1.3 10^3/ul (1.0-4.8); ABS Monocytes 0.6 10^3/ul (0-0.8); ABS Neutrophils 5.6 10^3/ul (1.5-7.7); ABS Nucleated RBC 0 10^3/ul; Eosinophil % 0 % (0-6); Hematocrit 41 % (35-47); Hemoglobin 12.4 g/dl (12.0-16.0); Lymphocyte % 16.8 % (25-47); Mean Corpuscular HGB Conc 30 g/dl (31-36); Mean Corpuscular Hemoglobin 26 pg (27-31); Mean Corpuscular Volume 87 fL (80-97); Mean Platelet Volume 10 um3 (7.4-10.4); Nucleated Red Blood Cells % 0; Platelet Count 245 10^3/ul (150-450); Red Blood Count 4.68 10^6/ul (4.0-5.4); Red Cell Distribution Width 21 % (10.5-15); White Blood Count 7.5 10^3/ul (3.5-10.8)
[2017-08-14 16:46] LABS: EGFR Non-African American 124.5 (>60)
[2017-08-14] MEDS ORDERED: NS 0.9% 1000 ML* 1,000 ML IV ONE (17:03)
[2017-08-14] MEDS ORDERED: cefTRIAXone(*) 1 GM in NS 0.9% 50 ML* 50 ML IVPB ONE (17:03)
[2017-08-14 17:34] LABS: Urine Appearance Cloudy; Urine Blood Negative (Negative); Urine Color Yellow; Urine Ketones Trace (Negative); Urine Protein Negative (Negative); Urine Specific Gravity 1.027 (1.010-1.030); Urine Urobilinogen Negative (Negative)
--- NOTE | 2017-08-14 19:29 | RAD ---
INDICATION: Altered mental status. COMPARISON: Comparison is made with a prior CT of the brain from May 24, 2017. TECHNIQUE: Contiguous axial sections of the brain were obtained from the skull base to the vertex without contrast. FINDINGS: The ventricles, cisterns and sulci are enlarged consistent with diffuse atrophy. There are small areas of decreased density in the subcortical and periventricular white matter suggestive of mild chronic small vessel ischemic changes. No other focal abnormality or mass effect is seen. There is no evidence for hemorrhage. No significant focal osseous abnormality is seen. The visualized portion of the paranasal sinuses and mastoid air cells appear clear. IMPRESSION: 1. NO EVIDENCE FOR ACUTE INTRACRANIAL ABNORMALITY. 2. ATROPHY AND FINDINGS MOST CONSISTENT WITH MILD CHRONIC SMALL VESSEL ISCHEMIC CHANGES.
[2017-08-14 21:17] VITALS: BP 99/52
--- NOTE | 2017-08-14 21:27 | ED ---
Karine Martinez Gabriel, scribed for Reid Otto MD on 08/14/17 at 1618 . Altered Mental Status - HPI Summary HPI Summary: This patient is a 72 year old F BIBA to [facility] sent from [facility] with a chief complaint of AMS since unknown date. MOLST from the prosecuting attorney she is DNR/ conform only, no IV but her sister wants her to be treated. 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 - History Of Current Complaint Chief Complaint: EDAltMentalStatus Stated Complaint: AMS Time Seen by Provider: 08/14/17 15:20 Hx Obtained From: EMS Hx From Patient Unobtainable Due To: Altered Mental Status Onset/Duration: Unknown, Still Present Timing: Constant Severity Initially: Severe Severity Currently: Severe Character: Responsiveness - decreased Alleviating Factor(s): Nothing - Allergies/Home Medications Allergies/Adverse Reactions: Allergies Allergy/AdvReac Type Severity Reaction Status Date / Time Aspirin Allergy See Comment Verified 05/26/17 06:49 Sulfa Antibiotics Allergy Hives/Diff. 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 - Cancer History Hx Chemotherapy: No Hx Radiation Therapy: No Infectious Disease History: No Infectious Disease History: Denies: Traveled Outside the [place] in Last 30 Days - Family History Known Family History: Positive: Unknown - Unobtainable secondary to MR - Social History Alcohol Use: None Substance Use Type: Reports: None Smoking Status (MU): Never Smoked Tobacco Review of Systems - ROS Summary Review of Systems Summary: LEVEL 5 CAVEAT: ROS limited due to 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 All Other Systems Reviewed And Are Negative: No Physical Exam - Summary Physical Exam Summary: Appearance: chronically ill appearing and in mild distress Skin: warm, dry, reflects adequate perfusion Head/face: Sunken cheeks Eyes: EOMI, ANIBAL ENT: white plaque on the tounge Neck: supple, non-tender Respiratory: shallow respirations and tachypnea Cardiovascular: tachycardic, good symmetrical pulses Abdomen: non-tender, soft Bowel: present Musculoskeletal: bilateral LE in contracture and pressure dressing boots Neuro: is non responsive but can follow simple commands Triage Information Reviewed: Yes Vital Signs On Initial Exam: Initial Vitals Temp Pulse Resp BP Pulse Ox 100.3 F 115 30 123/81 95 08/14/17 15:14 08/14/17 15:14 08/14/17 15:14 08/14/17 15:14 08/14/17 15:14 Vital Signs Reviewed: Yes Completion Of Physical Exam Limited Due To: Dementia, Altered Mental Status, Level 5 Diagnostics - Vital Signs Vital Signs Temp Pulse Resp BP Pulse Ox 08/14/17 15:14 100.3 F 115 30 123/81 95 - Laboratory Lab Results: Lab Results 08/14/17 08/14/17 08/14/17 Range/Units 16:03 16:03 16:03 WBC 7.5 (3.5-10.8) 10^3/ul RBC 4.68 (4.0-5.4) 10^6/ul Hgb 12.4 (12.0-16.0) g/dl Hct 41 (35-47) % MCV 87 (80-97) fL MCH 26 L (27-31) pg MCHC 30 L (31-36) g/dl RDW 21 H (10.5-15) % Plt Count 245 (150-450) 10^3/ul MPV 10 (7.4-10.4) um3 Neut % (Auto) 74.2 (38-83) % Lymph % (Auto) 16.8 L (25-47) % [place] % (Auto) 8.5 (1-9) % Eos % (Auto) 0 (0-6) % Baso % (Auto) 0.5 (0-2) % Absolute Neuts (auto) 5.6 (1.5-7.7) 10^3/ul Absolute Lymphs (auto) 1.3 (1.0-4.8) 10^3/ul Absolute Monos (auto) 0.6 (0-0.8) 10^3/ul Absolute Eos (auto) 0 (0-0.6) 10^3/ul Absolute Basos (auto) 0 (0-0.2) 10^3/ul Absolute Nucleated RBC 0 10^3/ul Nucleated RBC % 0 APTT 30.6 (26.0-36.3) seconds Sodium 159 H* (133-145) mmol/L Potassium 3.7 (3.5-5.0) mmol/L Chloride 126 H (101-111) mmol/L Carbon Dioxide 25 (22-32) mmol/L Anion Gap 8 (2-11) mmol/L BUN 36 H (6-24) mg/dL Creatinine 0.49 L (0.51-0.95) mg/dL Est GFR ( Amer) 160.1 (>60) Est GFR (Non-Af Amer) 124.5 (>60) BUN/Creatinine Ratio 73.5 H (8-20) Glucose 107 H (70-100) mg/dL Lactic Acid (0.5-2.0) mmol/L Calcium 8.5 L (8.6-10.3) mg/dL Total Bilirubin 0.60 (0.2-1.0) mg/dL AST 34 (13-39) U/L ALT 22 (7-52) U/L Alkaline Phosphatase 72 (34-104) U/L Troponin I 0.01 (<0.04) ng/mL Total Protein 6.0 L (6.4-8.9) g/dL Albumin 3.0 L (3.2-5.2) g/dL Globulin 3.0 (2-4) g/dL Albumin/Globulin Ratio 1.0 (1-3) Urine Color Urine Appearance Urine pH (5-9) Ur Specific [place] (1.010-1.030) Urine Protein (Negative) Urine Ketones (Negative) Urine Blood (Negative) Urine Nitrate (Negative) Urine Bilirubin (Negative) Urine Urobilinogen (Negative) Ur Leukocyte Esterase (Negative) Urine Glucose (Negative) Urine Ascorbic Acid (Negative) Influenza A (Rapid) (Negative) Influenza B (Rapid) (Negative) 08/14/17 08/14/17 08/14/17 Range/Units 16:03 17:18 18:03 WBC (3.5-10.8) 10^3/ul RBC (4.0-5.4) 10^6/ul Hgb (12.0-16.0) g/dl Hct (35-47) % MCV (80-97) fL MCH (27-31) pg MCHC (31-36) g/dl RDW (10.5-15) % Plt Count (150-450) 10^3/ul MPV (7.4-10.4) um3 Neut % (Auto) (38-83) % Lymph % (Auto) (25-47) % [place] % (Auto) (1-9) % Eos % (Auto) (0-6) % Baso % (Auto) (0-2) % Absolute Neuts (auto) (1.5-7.7) 10^3/ul Absolute Lymphs (auto) (1.0-4.8) 10^3/ul Absolute Monos (auto) (0-0.8) 10^3/ul Absolute Eos (auto) (0-0.6) 10^3/ul Absolute Basos (auto) (0-0.2) 10^3/ul Absolute Nucleated RBC 10^3/ul Nucleated RBC % APTT (26.0-36.3) seconds Sodium (133-145) mmol/L Potassium (3.5-5.0) mmol/L Chloride (101-111) mmol/L Carbon Dioxide (22-32) mmol/L Anion Gap (2-11) mmol/L BUN (6-24) mg/dL Creatinine (0.51-0.95) mg/dL Est GFR ( Amer) (>60) Est GFR (Non-Af Amer) (>60) BUN/Creatinine Ratio (8-20) Glucose (70-100) mg/dL Lactic Acid 0.9 (0.5-2.0) mmol/L Calcium (8.6-10.3) mg/dL Total Bilirubin (0.2-1.0) mg/dL AST (13-39) U/L ALT (7-52) U/L Alkaline Phosphatase (34-104) U/L Troponin I (<0.04) ng/mL Total Protein (6.4-8.9) g/dL Albumin (3.2-5.2) g/dL Globulin (2-4) g/dL Albumin/Globulin Ratio (1-3) Urine Color Yellow Urine Appearance Cloudy Urine pH 5.0 (5-9) Ur Specific [place] 1.027 (1.010-1.030) Urine Protein Negative (Negative) Urine Ketones Trace H (Negative) Urine Blood Negative (Negative) Urine Nitrate Negative (Negative) Urine Bilirubin Negative (Negative) Urine Urobilinogen Negative (Negative) Ur Leukocyte Esterase Negative (Negative) Urine Glucose Negative (Negative) Urine Ascorbic Acid * H (Negative) Influenza A (Rapid) Negative (Negative) Influenza B (Rapid) Negative (Negative) 08/14/17 Range/Units 19:34 WBC (3.5-10.8) 10^3/ul RBC (4.0-5.4) 10^6/ul Hgb (12.0-16.0) g/dl Hct (35-47) % MCV (80-97) fL MCH (27-31) pg MCHC (31-36) g/dl RDW (10.5-15) % Plt Count (150-450) 10^3/ul MPV (7.4-10.4) um3 Neut % (Auto) (38-83) % Lymph % (Auto) (25-47) % [place] % (Auto) (1-9) % Eos % (Auto) (0-6) % Baso % (Auto) (0-2) % Absolute Neuts (auto) (1.5-7.7) 10^3/ul Absolute Lymphs (auto) (1.0-4.8) 10^3/ul Absolute Monos (auto) (0-0.8) 10^3/ul Absolute Eos (auto) (0-0.6) 10^3/ul Absolute Basos (auto) (0-0.2) 10^3/ul Absolute Nucleated RBC 10^3/ul Nucleated RBC % APTT (26.0-36.3) seconds Sodium (133-145) mmol/L Potassium (3.5-5.0) mmol/L Chloride (101-111) mmol/L Carbon Dioxide (22-32) mmol/L Anion Gap (2-11) mmol/L BUN (6-24) mg/dL Creatinine (0.51-0.95) mg/dL Est GFR ( Amer) (>60) Est GFR (Non-Af Amer) (>60) BUN/Creatinine Ratio (8-20) Glucose (70-100) mg/dL Lactic Acid 0.7 (0.5-2.0) mmol/L Calcium (8.6-10.3) mg/dL Total Bilirubin (0.2-1.0) mg/dL AST (13-39) U/L ALT (7-52) U/L Alkaline Phosphatase (34-104) U/L Troponin I (<0.04) ng/mL Total Protein (6.4-8.9) g/dL Albumin (3.2-5.2) g/dL Globulin (2-4) g/dL Albumin/Globulin Ratio (1-3) Urine Color Urine Appearance Urine pH (5-9) Ur Specific [place] (1.010-1.030) Urine Protein (Negative) Urine Ketones (Negative) Urine Blood (Negative) Urine Nitrate (Negative) Urine Bilirubin (Negative) Urine Urobilinogen (Negative) Ur Leukocyte Esterase (Negative) Urine Glucose (Negative) Urine Ascorbic Acid (Negative) Influenza A (Rapid) (Negative) Influenza B (Rapid) (Negative) Result Diagrams: 08/14/17 16:03 08/14/17 16:03 Lab Statement: Any lab studies that have been ordered have been reviewed, and results considered in the medical decision making process. - Radiology CXR Radiology Interpretation Completed By: Radiologist - Limited exam due to leftward rotation without compelling acute intrathoracic process. ED physician has reviewed this radiology report. Re-Evaluation - Re-Evaluation First Eval Change: Unchanged - pt remained poorly responsive despite tx. Altered Mental Statu Course/Dx - Course Course Of Treatment: Pt came in with MOL as DNR/CC with "do not send to hospital" orders. She had sepsis syndrome and critically high Na+. This was communicated to sister who is POA. I suggested w/u here and discharge to SNF with iv fluids and antibiotics. She agreed at no further advanced testing or admission. She will solidify pt's end of life wishes. D/W SNF -- they will accept back on IV fluids, order given. Rocephin IV to continue. Pt with expectant course. - Diagnoses Discharge Diagnoses: Sepsis syndrome, Dementia, Schizophrenia, Hypernatremia - Critical Care Time Critical Care Time: 30-74 min - includes consultation with family, review of records, discussion with SNF and pharmacy. CCT is exclusive of separately billable procedures Discharge - Discharge Plan Condition: Guarded Disposition: CUSTODIAL FACILITY Prescriptions: [id number](*) [Rocephin(*)] 1 gm IV BID #10 vial Patient Education Materials: Hypernatremia (ED) Referrals: Rick Mixon MD [Primary Care Provider] - Additional Instructions: Normal saline at 125cc/hr. Recheck sodium in 2 days. Return if family decides to rescind comfort care measures, worse, new symptoms or other concerns. The documentation as recorded by the Karine flores Gabriel accurately reflects the service I personally performed and the decisions made by me, Reid Otto MD.
== END 2017-08-14 21:15 ==
LOC: ED 15:02
DX: A41.9 Sepsis, unspecified organism (principal); F03.90 Unspecified dementia, unspecified severity, without behavioral disturbance, psychotic disturbance, mood disturbance, and anxiety; F20.9 Schizophrenia, unspecified; E87.0 Hyperosmolality and hypernatremia; Z66 Do not resuscitate; Z88.6 Allergy status to analgesic agent; Z88.2 Allergy status to sulfonamides
CPT/HCPCS: 36415; 70450; 71010; 80053; 81003; 83605; 84484; 85025; 85730; 87040; 87502; 96361; 96365; 99284; A9270-GY; J0696